=== PATIENT | female | born 1955 | race African-American/Black ===

== ENCOUNTER → 2017-02-20 | Outpatient (CLI) | payer OTHER ==
[2016-11-01 11:00] VITALS: BP 137/82
[~2017-02-20] MED LIST: ASPI-482 PO; ATOR10TA PO; BENZ1TAB5 PO; Benztropine Mesylate PO; CARV3.12 PO; CITA40TA5 PO; DIVA500T17 PO; DIVA500T9 PO; DULO30CA43 PO; FLUO40CA2 PO; FURO40TA4 PO; GABA-586 PO; HYDR-2678 PO; LEVE500T6 PO; LEVO25TA4 PO; LISI-338 PO; LISI10TA2 PO; LORA0.5T PO; METF500T4 PO; MONT10TA9 PO; OLAN15TA9 PO; OLAN5TAB9 PO; OMEP40CA5 PO; PANT40TA5 PO; POTA10CA PO; SENN1TAB19 PO; SOLI5TAB PO; WARF1TAB7 PO; WARF4TAB7 PO
--- NOTE | 2017-02-20 18:43 | EEG ---
DATE OF SERVICE: 02/20/2017 This is EEG number [id number], performed on 02/20/2017. OBJECTIVE: The patient is a 61-year-old female with seizures. DESCRIPTION: This is a digital study. Electrodes are placed according to the International 10-20 system. Bipolar and referential montages are available. Activation procedures typically include hyperventilation and intermittent photic stimulation. INTERPRETATION: The waking background consists of 8-9 Hz, 50-100 microvolt activity, symmetrically distributed over parietooccipital regions and reactive to eye opening. Stage 1 sleep is achieved with normal electroencephalogram patterns. Hyperventilation and intermittent photic stimulation are noncontributory. IMPRESSION: This electroencephalogram with the patient awake and asleep is within normal limits. There is no focal, paroxysmal or epileptiform activity. Thank you for letting us help with the patient's care. ZAKIA MYRICK MD DR: CAR/rima JOB#: [id number] / [id number] SHANTE Nick MD
== END | disposition home or self-care (01) ==
LOC: RT 08:05
PROVIDERS: ATTEND Psychiatry & Neurology Neurology with Special Qualifications in Child Neurology
DX: R56.9 Unspecified convulsions (principal)
CPT/HCPCS: 95816

== ENCOUNTER 2017-03-19 11:35 | Inpatient (IN) | payer OTHER ==
[~2017-03-19] VITALS: Ht 167.6 cm; Wt 156.7 kg
[~2017-03-19 11:35] MED LIST changes: -POTA10CA PO; +POTASSIUM CHLO10 MEQ PO
[2017-03-19] MEDS ORDERED: IPRATRPIUM/ALBUTEROL 0.5/2.5MG 3 ML NEBU. NEB ONE (12:00)
[2017-03-19 12:24] LABS: INR 3.9 (0.8-1.1)
[2017-03-19 12:26] LABS: BASO # 0.1 x10^3/uL (0.0-0.2); BASO % 1 % (0-3); EOS % 2 % (0-3); HEMATOCRIT 34.8 % (36.0-47.0); HEMOGLOBIN 11.6 g/dL (12.0-15.5); LYMPH # 2.5 x10^3/uL (1.0-4.8); LYMPH % 46 % (24-48); MEAN CORPUSCULAR HEMOGLOBIN 28 pg (25-35); MEAN CORPUSCULAR HGB CONC 33 g/dL (31-37); MEAN CORPUSCULAR VOLUME 83 fL (79-100); MONO % 8 % (0-9); NEUT % 44 % (31-73); PLATELET COUNT 246 x10^3/uL (140-400); RED BLOOD COUNT 4.19 x10^6/uL (3.50-5.40); WHITE BLOOD COUNT 5.5 x10^3/uL (4.0-11.0)
[2017-03-19 12:27] LABS: CREATININE 1.2 mg/dL (0.6-1.0); GFR 54.9
[2017-03-19 12:33] LABS: ALBUMIN 3.3 g/dL (3.4-5.0); ALBUMIN/GLOBULIN RATIO 0.9 (1.0-1.7); MAGNESIUM 1.7 mg/dL (1.8-2.4); TOTAL BILIRUBIN 0.2 mg/dL (0.2-1.0); TOTAL PROTEIN 7.1 g/dL (6.4-8.2)
--- NOTE | 2017-03-19 12:53 | RAD ---
Examination: Single frontal view the chest. History: History of shortness of breath, weakness Comparison: 10/30/2016 Findings: Low lung volumes and technique axial due to pulmonary vasculature. Mild cardiomegaly. Right-sided cardiac pacer is unchanged. Minimal prominent appearing bilateral interstitial lung markings likely minimal congestive changes. Impression: 1. Minimal congestive changes
--- NOTE | 2017-03-19 13:14 | PHYS DOC ---
Past Medical History Past Medical History: Asthma, Bipolar, Diabetes-Type II, Hypertension, Hypothyroid, Other Additional Past Medical Histor: PE Past Surgical History: Cholecystectomy, Pacemaker, Other Additional Past Surgical Histo: bladder lift, partial hysterectomy, hernia repair Alcohol Use: None Drug Use: None Adult General Chief Complaint Chief Complaint: SHORTNESS OF BREATH HPI HPI Patient is a 61 year old female presenting to the emergency department for evaluation of shortness of breath that started earlier this morning and has persisted the point that she cannot emulate without becoming severely dyspneic. She appears to be short of breath and hyperventilating and she will answer questions in short word sentences. She says she does not feel anxious. She has history of pulmonary emboli and is on Coumadin. She says she has some chest tightness but denies any fevers chills nausea vomiting or other systemic symptoms. Review of Systems Review of Systems Constitutional: Denies fever or chills [] Eyes: Denies change in visual acuity, redness, or eye pain [] HENT: Denies nasal congestion or sore throat [] Respiratory: Denies cough. + shortness of breath [] Cardiovascular: No additional information not addressed in HPI [] GI: Denies abdominal pain, nausea, vomiting, bloody stools or diarrhea [] : Denies dysuria or hematuria [] Musculoskeletal: Denies back pain or joint pain [] Integument: Denies rash or skin lesions [] Neurologic: Denies headache, focal weakness or sensory changes [] Current Medications Current Medications Current Medications Medications (Trade) Dose Ordered Sig/Neo Start Time Stop Time Status Last Admin Dose Admin Albuterol/ Ipratropium (Duoneb) 3 ml 1X ONCE 03/19/17 12:00 03/19/17 12:01 DC 03/19/17 12:10 3 ML Levofloxacin/ Dextrose 150 ml @ 100 mls/hr 1X ONCE 03/19/17 13:15 03/19/17 14:44 03/19/17 14:17 100 MLS/HR Lorazepam (Ativan) 1 mg 1X ONCE 03/19/17 12:00 03/19/17 12:01 DC 03/19/17 12:16 1 MG Sodium Chloride 1,000 ml @ 1,000 mls/hr 1X ONCE 03/19/17 13:15 03/19/17 14:14 DC Allergies Allergies Allergies Coded Allergies Type Severity Reaction Last Updated Verified No Known Medication Allergies Allergy Unknown 11/26/14 Yes Physical Exam Physical Exam Constitutional: Well developed, well nourished, anxious, non-toxic appearance. [ ] HENT: Normocephalic, atraumatic, bilateral external ears normal, oropharynx moist, no oral exudates, nose normal. [] Eyes: PERRLA, EOMI, conjunctiva normal, no discharge. [] Neck: Normal range of motion, no tenderness, supple, no stridor. [] Cardiovascular:Heart rate regular rhythm, no murmur [] Lungs & Thorax: Bilateral breath sounds diminished with inspiratory and expiratory wheezing Abdomen: Bowel sounds normal, soft, no tenderness, no masses, no pulsatile masses. [] Skin: Warm, dry, no erythema, no rash. [] Back: No tenderness, no CVA tenderness. [] Extremities: No tenderness, no cyanosis, no clubbing, ROM intact, + edema. [] Neurologic: Alert and oriented X 3, normal motor function, normal sensory function, no focal deficits noted. [] Current Patient Data Vital Signs Vital Signs Date Time Temp Pulse Resp B/P (MAP) Pulse Ox O2 Delivery O2 Flow Rate FiO2 03/19/17 12:16 95 Room Air 03/19/17 11:42 97.3 68 24 162/91 (114) 97.3 Lab Values Laboratory Tests Test 03/19/17 12:00 White Blood Count 5.5 x10^3/uL (4.0-11.0) Red Blood Count 4.19 x10^6/uL (3.50-5.40) Hemoglobin 11.6 g/dL (12.0-15.5) L Hematocrit 34.8 % (36.0-47.0) L Mean Corpuscular Volume 83 fL (79-100) Mean Corpuscular Hemoglobin 28 pg (25-35) Mean Corpuscular Hemoglobin Concent 33 g/dL (31-37) Red Cell Distribution Width 17.0 % (11.5-14.5) H Platelet Count 246 x10^3/uL (140-400) Neutrophils (%) (Auto) 44 % (31-73) Lymphocytes (%) (Auto) 46 % (24-48) Monocytes (%) (Auto) 8 % (0-9) Eosinophils (%) (Auto) 2 % (0-3) Basophils (%) (Auto) 1 % (0-3) Neutrophils # (Auto) 2.4 x10^3uL (1.8-7.7) Lymphocytes # (Auto) 2.5 x10^3/uL (1.0-4.8) Monocytes # (Auto) 0.4 x10^3/uL (0.0-1.1) Eosinophils # (Auto) 0.1 x10^3/uL (0.0-0.7) Basophils # (Auto) 0.1 x10^3/uL (0.0-0.2) Prothrombin Time 36.0 SEC (11.7-14.0) H Prothrombin Time INR 3.9 (0.8-1.1) H PTT 77 SEC (24-38) H D-Dimer (Jolynn) 0.27 ug/mlFEU (0.00-0.50) Sodium Level 140 mmol/L (136-145) Potassium Level 4.0 mmol/L (3.5-5.1) Chloride Level 106 mmol/L (98-107) Carbon Dioxide Level 23 mmol/L (21-32) Anion Gap 11 (6-14) Blood Urea Nitrogen 12 mg/dL (7-20) Creatinine 1.2 mg/dL (0.6-1.0) H Estimated GFR (Cockcroft-Gault) 54.9 BUN/Creatinine Ratio 10 (6-20) Glucose Level 93 mg/dL (70-99) Lactic Acid Level 2.9 mmol/L (0.4-2.0) H Calcium Level 9.0 mg/dL (8.5-10.1) Magnesium Level 1.7 mg/dL (1.8-2.4) L Total Bilirubin 0.2 mg/dL (0.2-1.0) Aspartate Amino Transferase (AST) 21 U/L (15-37) Alanine Aminotransferase (ALT) 32 U/L (14-59) Alkaline Phosphatase 58 U/L (46-116) Creatine Kinase 338 U/L (26-192) H Troponin I Quantitative < 0.017 ng/mL (0.000-0.055) KS-Fbo-C-Type Natriuretic Peptide 121 pg/mL (0-124) Total Protein 7.1 g/dL (6.4-8.2) Albumin 3.3 g/dL (3.4-5.0) L Albumin/Globulin Ratio 0.9 (1.0-1.7) L Lipase 88 U/L (73-393) Thyroid Stimulating Hormone (TSH) 1.813 uIU/mL (0.358-3.74) Ethyl Alcohol Level < 10 mg/dL (0-10) Laboratory Tests 03/19/17 12:00 Laboratory Tests 03/19/17 12:00 EKG EKG Normal sinus rhythm at 64 beats per minutes with leftward axis no obvious ST elevation or depression and normal T waves. Radiology/Procedures Radiology/Procedures Examination: Single frontal view the chest. History: History of shortness of breath, weakness Comparison: 10/30/2016 Findings: Low lung volumes and technique axial due to pulmonary vasculature. Mild cardiomegaly. Right-sided cardiac pacer is unchanged. Minimal prominent appearing bilateral interstitial lung markings likely minimal congestive changes. Impression: 1. Minimal congestive changes DICTATED and SIGNED BY: MAIKEL CRISTINA MD DATE: 03/19/17 124 Course & Med Decision Making Course & Med Decision Making Patient given Ativan and DuoNeb and improved significantly however she says that she is still feeling short of breath and poorly. Even patient is morbidly obese she says she cannot function very well at home and is concerned about her safety at home. Patient will be admitted in stable condition. Dragon Disclaimer Dragon Disclaimer This electronic medical record was generated, in whole or in part, using a voice recognition dictation system. Departure Departure Impression: Primary Impression: COPD exacerbation Disposition: ADMITTED INPATIENT Admitting Physician: Terry Gómez Condition: STABLE Referrals: TERRY GÓMEZ MD (PCP) SAVANAH DEMPSEY DO March 19, 2017 13:13
[2017-03-19] MEDS ORDERED: IV NORMAL SALINE 1000ML BAG 1,000 ML IV ONE (13:15)
[2017-03-19] MEDS ORDERED: ONDANSETRON PF 4 MG/2 ML VIAL. IV PRN (14:30)
--- NOTE | 2017-03-19 15:17 | EKG ---
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
[2017-03-19 15:20] VITALS: BP 141/95
--- NOTE | 2017-03-19 15:49 | ACF ---
Admission Forms Criteria COPD Clinical Indications for Admission to Inpatient Care (Place 'X' for any and all applicable criteria): Admission is indicated for ANY ONE of the following (1)(2)(3): [ ]I. Acute exacerbation by high-risk comorbidity (e.g., pneumonia, dysrhythmia, heart failure, pleural effusion, pneumothorax) or severe underlying COPD (e.g., steroid dependent) [X]II. Inpatient admission required rather than observation care (see Chronic Obstructive Pulmonary Disease: Observation Care) because of ANY ONE of the following: [X]a) New or pre-existing signs or symptoms of COPD (eg, dyspnea or Tachypnea at rest or with minimal activity) that persist despite outpatient and observation care treatment [ ]b) New-onset hypoxemia (room air SaO2 less than 90%, PO2 less than 60 mm Hg (8.0 kPa)) that persists despite outpatient and observation care treatment [ ]c) Worsening of pre-existing hypoxemia (eg, new or increased requirement for supplemental oxygen to maintain oxygenation at baseline level) that persists despite outpatient and observation care treatment, with oxygen treatment needs performable only in acute inpatient setting [ ]d) Hypercarbia (PCO2 greater than 40 mm Hg (5.3 kPa))-induced respiratory acidosis (pH less than 7.35) that persists despite outpatient and observation care treatment [ ]e) Supplemental oxygen or respiratory treatments for over 24 hours that are performable only in acute inpatient setting [ ]f) Chest tube placement with active evacuation (e.g., suction, drainage) (5) [ ]g) Other condition, treatment or monitoring requiring inpatient admission [ ]III. Planned invasive surgical or diagnostic procedures requiring acute- care hospitalization [ ]IV. Acute respiratory failure (e.g., uncompensated hypercarbia, severe hypoxemia) [ ]V. Severe comorbid condition (e.g., severe steroid myopathy, acute vertebral fracture) that has acutely worsened pulmonary function [ ]. Confusion state, lethargy, obtundation, stupor or coma Extended stay beyond goal length of stay may be needed for (31)(32): [ ]a ) Respiratory Failure. [ ]b) Severe or persisting hypoxemia or hypercarbia [ ]c) Severe or persistent dyspnea [ ]d) Comorbidities (e.g. chronic heart failure, atrial fibrillation with rapid response, pneumonia) [ ]e) Malnutrition The original [facility] content created by [facility] has been revised. The portions of the content which have been revised are identified through the use of italic text or in bold, and [facility] has neither reviewed nor approved the modified material. All other unmodified content is copyright [email or web address]. Please see references footnoted in the original [email or web address] edition 2016 Admission Criteria Met?: Yes TAMARA PIZARRO March 19, 2017 15:49
[2017-03-19] MEDS ORDERED: LISI-338 PO (17:30)
[2017-03-19] MEDS ORDERED: ZIPR60CA2 PO (17:34)
[2017-03-19] MEDS ORDERED: ERGO500012 PO (17:34)
[2017-03-19] MEDS ORDERED: POLY2500 PO (17:34)
[2017-03-19 19:00] VITALS: BP 142/77
[2017-03-19 23:10] VITALS: BP 139/85
[2017-03-20 03:00] VITALS: BP 141/83
[2017-03-20 06:32] LABS: BASO # 0.1 x10^3/uL (0.0-0.2); BASO % 1 % (0-3); EOS % 3 % (0-3); HEMOGLOBIN 11.7 g/dL (12.0-15.5); LYMPH # 2.8 x10^3/uL (1.0-4.8); LYMPH % 49 % (24-48); MEAN CORPUSCULAR HEMOGLOBIN 27 pg (25-35); MEAN CORPUSCULAR HGB CONC 32 g/dL (31-37); MEAN CORPUSCULAR VOLUME 84 fL (79-100); MONO % 8 % (0-9); NEUT % 39 % (31-73); PLATELET COUNT 279 x10^3/uL (140-400); RED CELL DISTRIBUTION WIDTH 17.3 % (11.5-14.5); WHITE BLOOD COUNT 5.7 x10^3/uL (4.0-11.0)
[2017-03-20 06:41] LABS: CALCIUM 8.6 mg/dL (8.5-10.1); CREATININE 1.1 mg/dL (0.6-1.0); GFR 60.7; POTASSIUM 3.9 mmol/L (3.5-5.1)
[2017-03-20 07:00] VITALS: BP 140/88
[2017-03-20] MEDS ORDERED: IPRATRPIUM/ALBUTEROL 0.5/2.5MG 3 ML NEBU. NEB ONE (09:15)
--- NOTE | 2017-03-20 09:17 | PDOC ---
Provider Note Provider Note dictated Dyspnea,? etiology doubt PE, will do V/Q ZHANG MARSH MD March 20, 2017 09:17
[2017-03-20] MEDS ORDERED: ENOXAPARIN 40 MG/0.4 ML SYRINGE. SQ SCH (10:00)
[2017-03-20] MEDS: LEVOTHYROXINE 25 MCG TABLET. PO SCH (10:01)
[2017-03-20] MEDS: FLUoxetine HCL 20 MG CAPSULE PO SCH (10:01)
[2017-03-20] MEDS: LORazepam 0.5 MG TABLET PO SCH ×3 (10:01→20:54)
[2017-03-20] MEDS: LISINOPRIL 5 MG TABLET. PO SCH (10:01)
[2017-03-20] MEDS: POLYETHYLENE GLYCOL 3350 17 GM PACKET. PO SCH (10:01)
[2017-03-20] MEDS: levETIRAcetam 500 MG TABLET PO SCH ×2 (10:01→20:54)
[2017-03-20] MEDS: ASPIRIN ENTERIC COATED 81 MG TABLET.DR. PO SCH (10:01)
[2017-03-20] MEDS: ZIPRASIDONE 60 MG CAPSULE. PO SCH ×2 (10:01→20:54)
[2017-03-20] MEDS: methylPREDNISolone SOD SUCC PF 125 MG/2 ML VIAL. IV SCH ×3 (10:02→20:54)
--- NOTE | 2017-03-20 10:20 | PDOC ---
Provider Note Provider Note Pt seen.H&P dictated. #[id number] SHANTE BERNAL MD March 20, 2017 10:20
--- NOTE | 2017-03-20 10:24 | CONS ---
DATE OF CONSULTATION: ATTENDING PHYSICIAN: Dr. Gómez. REASON FOR CONSULTATION: Dyspnea. HISTORY OF PRESENT ILLNESS: The patient is a 61-year-old morbidly obese patient with a history of pulmonary embolism about a year ago. She has been on Coumadin since then. She said yesterday she had a sudden episode of shortness of breath. She said she felt a little lightheaded as well. No chest pain. No cough, no fever, no chills. No leg edema. The patient was short of breath and was hyperventilating. She was seen in the Emergency Room for further evaluation. Initial workup revealed a clear chest x-ray. Her INR was actually 3.9 and her D-dimer was only 0.27. She feels better. I have been asked to see her for further evaluation. She never smoked cigarettes. She does have a history of asthma. She said she was not bothered by hot weather. PAST MEDICAL HISTORY: History of asthma, history of bipolar disorder, type 2 diabetes, hypertension, hypothyroidism, history of PE about a year ago, has been on chronic anticoagulation since then. PAST SURGICAL HISTORY: Cholecystectomy, pacemaker, bladder lift and partial hysterectomy and hernia repair. SOCIAL HISTORY: Nonsmoker. No history of alcohol use. ALLERGIES: None. MEDICATIONS: Reviewed as listed in the MRAD including IV steroids, Levaquin and she is also on warfarin. REVIEW OF SYSTEMS: Twelve-point systems were obtained. Pertinent positives discussed in my history of present illness, otherwise noncontributory. All systems that were negative were reviewed as well. FAMILY HISTORY: Noncontributory. PHYSICAL EXAMINATION: VITAL SIGNS: Stable. Pulse ox ____ on room air, afebrile. HEENT: Sclerae nonicteric. NECK: Supple. LUNGS: Clear. CARDIOVASCULAR: Regular ____. ABDOMEN: Soft, obese. EXTREMITIES: With no pitting edema. LABORATORY DATA: Reviewed. INR was 3.9. BUN 11, creatinine 1.1. White cell count 5.7, hemoglobin 11.7 and platelets are 279. IMPRESSION: 1. Acute episode of dyspnea. The patient has a history of pulmonary embolism about a year ago. Her INR was supra-therapeutic and it was 3.9. Her D-dimer was normal. It seems to be unlikely that we are dealing with pulmonary emboli, but I will do a VQ scan. She may have mild exacerbation of asthma, however, her lung sounds are clear at present. 2. No significant history of tobacco use. 3. Clear chest x-ray. 4. History of obstructive sleep apnea with intolerance to CPAP. RECOMMENDATIONS: 1. Hold Coumadin. 2. Discontinue Lovenox while she is already on Coumadin. 3. Obtain VQ scan. 4. Continue bronchodilators. 5. Continue steroids with gradual taper. 6. Discussed with family and further recommendations to follow. 7. Noct ox study ZHANG MARSH MD DR: ANDRES/rima JOB#: [id number] / [id number] KARLO
[2017-03-20 11:00] VITALS: BP 144/85
[2017-03-20] MEDS: IPRATRPIUM/ALBUTEROL 0.5/2.5MG 3 ML NEBU. NEB SCH ×3 (11:18→19:48)
--- NOTE | 2017-03-20 11:36 | HP ---
ADMIT DATE: 03/19/2017 PATIENT LOCATION: [facility] REASON FOR ADMISSION TO THE HOSPITAL: Shortness of breath, COPD, and history of asthma. HISTORY OF PRESENT ILLNESS: The patient is a 61-year-old female, morbidly obese. She has history of asthma, bipolar, diabetes, central obesity, hypertension, and hypothyroidism. She was having shortness of breath, came to the Emergency Room and she has history of pulmonary embolism in the past. She was on Coumadin. PAST SURGICAL HISTORY: She has history of pacemaker, gallbladder surgery and had a partial hysterectomy, hernia repair, and bladder surgery. ALLERGIES: No known allergies. MEDICATIONS AT HOME: The patient is on aspirin 81 mg, vitamin D 50,000 units once a week, fluoxetine 40 mg daily, Keppra for seizures 500 mg twice a day, levothyroxine 25 mcg daily, lisinopril 5 mg, lorazepam 0.5 mg three times a day, Protonix 40 mg daily, MiraLax 17 g daily, Coumadin takes between 9-10 mg daily, and Geodon 60 mg twice a day. PERSONAL HISTORY: Denies history of smoking, alcohol or drug abuse. FAMILY HISTORY: Diabetes and hypertension. REVIEW OF SYSTEMS: Fourteen-system review: CARDIAC: Complains of shortness of breath, no wheezing. GASTROINTESTINAL: No nausea or vomiting. NEUROLOGICAL: No weakness. The patient denies any pain going anywhere. Rest of the fourteen-systems was reviewed and negative. PHYSICAL EXAMINATION: GENERAL: The patient is not in any distress, comfortable lying in bed. VITAL SIGNS: Temperature 97, pulse 68, respirations 24, blood pressure 162/91, 98% on room air. HEENT: Head is atraumatic. Pupils equal. Oral cavity: Dentures. NECK: Supple. Thyroid not enlarged, JVD not elevated. CHEST: Symmetrical. CARDIOVASCULAR: S1, S2. No murmurs. LUNGS: Clear to auscultation. No wheezing. ABDOMEN: Central obesity. No mass palpable. EXTERNAL GENITALIA: No Mcwilliams. RECTAL: Deferred. EXTREMITIES: No calf tenderness, no edema. Pulses 1+. NEUROLOGIC: Cranial nerves intact. Power 5/5 in all extremities. LABORATORY DATA: Shows a white count of 5, hemoglobin 11, and platelets 246. Electrolytes show sodium 140, potassium 4.0, chloride 106, bicarbonate 23, BUN 12, creatinine 1.2, and glucose 93. Magnesium 1.7. LFTs were normal. Troponin 0.017. INR was 4. Alcohol level was less than 10. DIAGNOSTIC DATA: Chest x-ray shows mild scarring, prominent pulmonary vasculature and EKG done, report is pending. FINAL IMPRESSION: 1. Shortness of breath. 2. Possible obesity syndrome and hypoventilation syndrome. 3. History of pulmonary embolism, on anticoagulation, therapeutic INR. 4. Hypertension, hyperlipidemia, and hypothyroidism. 5. History of bipolar. 6. History of seizures. PLAN: At this time, was admitted to the hospital, seen by Pulmonology and will do a 6-minute walk and sleep desaturation study .In the past, the patient has not tolerated CPAP mask and will monitor and see how the patient's condition improves. SHANTE BERNAL MD DR: ZAKIYA/rima JOB#: [id number] / [id number] KARLO
--- NOTE | 2017-03-20 11:43 | EKG ---
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
[2017-03-20] MEDS: PANTOPRAZOLE 40 MG TABLET.DR. PO SCH (11:49)
--- NOTE | 2017-03-20 14:23 | RAD ---
Examination: VQ scan History: History of pulmonary embolus, shortness of breath Comparison: None available Technique: Ventilation scan was performed after administration of 11 mCi of xenon-133 inhalation. Perfusion scan is performed after administration of 5.5 mCi of technetium 99m MAA. Findings: No evidence of segmental mismatches are identified. There is radiotracer uptake identified in the washout phase on the ventilation images likely due to airway disease. Impression: 1. Very low probability for pulmonary embolism. 2. Radiotracer uptake identified in the washout phase images of the ventilation images likely due to airway disease.
[2017-03-20 15:00] VITALS: BP 121/67
[2017-03-20 19:00] VITALS: BP 150/71
[2017-03-20] MEDS ORDERED: WARFARIN 4 MG TABLET. PO SCH (21:00)
[2017-03-20] MEDS ORDERED: WARFARIN 1 MG TABLET. PO SCH (21:00)
[2017-03-20 22:41] VITALS: BP 155/77
[2017-03-21] MEDS: LEVOTHYROXINE 25 MCG TABLET. PO SCH (05:17)
[2017-03-21] MEDS: methylPREDNISolone SOD SUCC PF 125 MG/2 ML VIAL. IV SCH ×2 (05:17→14:29)
[2017-03-21] MEDS: PANTOPRAZOLE 40 MG TABLET.DR. PO SCH (05:17)
[2017-03-21 05:45] LABS: INR 2.9 (0.8-1.1); PROTHROMBIN TIME PATIENT 28.4 SEC (11.7-14.0)
[2017-03-21 07:49] VITALS: BP 153/90
[2017-03-21] MEDS: IPRATRPIUM/ALBUTEROL 0.5/2.5MG 3 ML NEBU. NEB SCH ×3 (07:50→15:44)
[2017-03-21] MEDS: ZIPRASIDONE 60 MG CAPSULE. PO SCH (08:52)
[2017-03-21] MEDS: FLUoxetine HCL 20 MG CAPSULE PO SCH (08:52)
[2017-03-21] MEDS: LORazepam 0.5 MG TABLET PO SCH ×2 (08:52→14:29)
[2017-03-21] MEDS: levETIRAcetam 500 MG TABLET PO SCH (08:52)
[2017-03-21] MEDS: ASPIRIN ENTERIC COATED 81 MG TABLET.DR. PO SCH (08:52)
[2017-03-21] MEDS: LISINOPRIL 5 MG TABLET. PO SCH (08:53)
[2017-03-21] MEDS: POLYETHYLENE GLYCOL 3350 17 GM PACKET. PO SCH (08:53)
--- NOTE | 2017-03-21 10:07 | PDOC ---
PULMONARY PROGRESS NOTES Subjective no soa Vitals Vital Signs Date Time Temp Pulse Resp B/P (MAP) Pulse Ox O2 Delivery O2 Flow Rate FiO2 03/21/17 08:53 65 153/90 03/21/17 08:00 Room Air 03/21/17 07:50 97 03/21/17 07:49 97.9 18 97.9 General: Alert Lungs: Clear Cardiovascular: S1 Abdomen: Soft Neuro Exam: Alert Extremities: No Edema Skin: Warm Labs Laboratory Tests Test 03/19/17 12:00 03/19/17 16:08 03/20/17 05:25 03/20/17 07:32 White Blood Count 5.5 x10^3/uL (4.0-11.0) 5.7 x10^3/uL (4.0-11.0) Red Blood Count 4.19 x10^6/uL (3.50-5.40) 4.30 x10^6/uL (3.50-5.40) Hemoglobin 11.6 g/dL (12.0-15.5) 11.7 g/dL (12.0-15.5) Hematocrit 34.8 % (36.0-47.0) 36.0 % (36.0-47.0) Mean Corpuscular Volume 83 fL (79-100) 84 fL (79-100) Mean Corpuscular Hemoglobin 28 pg (25-35) 27 pg (25-35) Mean Corpuscular Hemoglobin Concent 33 g/dL (31-37) 32 g/dL (31-37) Red Cell Distribution Width 17.0 % (11.5-14.5) 17.3 % (11.5-14.5) Platelet Count 246 x10^3/uL (140-400) 279 x10^3/uL (140-400) Neutrophils (%) (Auto) 44 % (31-73) 39 % (31-73) Lymphocytes (%) (Auto) 46 % (24-48) 49 % (24-48) Monocytes (%) (Auto) 8 % (0-9) 8 % (0-9) Eosinophils (%) (Auto) 2 % (0-3) 3 % (0-3) Basophils (%) (Auto) 1 % (0-3) 1 % (0-3) Neutrophils # (Auto) 2.4 x10^3uL (1.8-7.7) 2.2 x10^3uL (1.8-7.7) Lymphocytes # (Auto) 2.5 x10^3/uL (1.0-4.8) 2.8 x10^3/uL (1.0-4.8) Monocytes # (Auto) 0.4 x10^3/uL (0.0-1.1) 0.4 x10^3/uL (0.0-1.1) Eosinophils # (Auto) 0.1 x10^3/uL (0.0-0.7) 0.2 x10^3/uL (0.0-0.7) Basophils # (Auto) 0.1 x10^3/uL (0.0-0.2) 0.1 x10^3/uL (0.0-0.2) Prothrombin Time 36.0 SEC (11.7-14.0) Prothromb Time International Ratio 3.9 (0.8-1.1) Activated Partial Thromboplast Time 77 SEC (24-38) D-Dimer (Jolynn) 0.27 ug/mlFEU (0.00-0.50) Sodium Level 140 mmol/L (136-145) 138 mmol/L (136-145) Potassium Level 4.0 mmol/L (3.5-5.1) 3.9 mmol/L (3.5-5.1) Chloride Level 106 mmol/L (98-107) 104 mmol/L (98-107) Carbon Dioxide Level 23 mmol/L (21-32) 25 mmol/L (21-32) Anion Gap 11 (6-14) 9 (6-14) Blood Urea Nitrogen 12 mg/dL (7-20) 11 mg/dL (7-20) Creatinine 1.2 mg/dL (0.6-1.0) 1.1 mg/dL (0.6-1.0) Estimated GFR (Cockcroft-Gault) 54.9 60.7 BUN/Creatinine Ratio 10 (6-20) Glucose Level 93 mg/dL (70-99) 90 mg/dL (70-99) Lactic Acid Level 2.9 mmol/L (0.4-2.0) 0.9 mmol/L (0.4-2.0) Calcium Level 9.0 mg/dL (8.5-10.1) 8.6 mg/dL (8.5-10.1) Magnesium Level 1.7 mg/dL (1.8-2.4) Total Bilirubin 0.2 mg/dL (0.2-1.0) Aspartate Amino Transf (AST/SGOT) 21 U/L (15-37) Alanine Aminotransferase (ALT/SGPT) 32 U/L (14-59) Alkaline Phosphatase 58 U/L (46-116) Creatine Kinase 338 U/L (26-192) Troponin I Quantitative < 0.017 ng/mL (0.000-0.055) LK-Cbj-I-Type Natriuretic Peptide 121 pg/mL (0-124) Total Protein 7.1 g/dL (6.4-8.2) Albumin 3.3 g/dL (3.4-5.0) Albumin/Globulin Ratio 0.9 (1.0-1.7) Lipase 88 U/L (73-393) Thyroid Stimulating Hormone (TSH) 1.813 uIU/mL (0.358-3.74) Ethyl Alcohol Level < 10 mg/dL (0-10) Glucose (Fingerstick) 87 mg/dL (70-99) Test 03/20/17 11:04 03/20/17 16:19 03/20/17 20:59 03/21/17 04:35 Glucose (Fingerstick) 124 mg/dL (70-99) 159 mg/dL (70-99) 175 mg/dL (70-99) Prothrombin Time 28.4 SEC (11.7-14.0) Prothromb Time International Ratio 2.9 (0.8-1.1) Test 03/21/17 07:53 Glucose (Fingerstick) 130 mg/dL (70-99) Laboratory Tests Test 03/20/17 11:04 03/20/17 16:19 03/20/17 20:59 03/21/17 04:35 Glucose (Fingerstick) 124 mg/dL (70-99) 159 mg/dL (70-99) 175 mg/dL (70-99) Prothrombin Time 28.4 SEC (11.7-14.0) Prothromb Time International Ratio 2.9 (0.8-1.1) Test 03/21/17 07:53 Glucose (Fingerstick) 130 mg/dL (70-99) Medications Active Scripts Medications Dose Route/Sig Max Daily Dose Days Date Category Polyethylene Glycol 3350 2,500 Gm Powder 17 Gm PO DAILY 03/19/17 Reported Geodon (Ziprasidone Hcl) 60 Mg Capsule 60 Mg PO BID 03/19/17 Reported Vitamin D2 (Ergocalciferol (Vitamin D2)) 50,000 Unit Capsule 50,000 Unit PO 2X/WEEK 03/19/17 Reported Lisinopril 5 Mg Tablet 5 Mg PO DAILY 03/19/17 Reported Warfarin Sodium 4 Mg Tablet 2 Tab PO HS 10/30/16 Reported Warfarin Sodium 1 Mg Tablet 1 Mg PO HS 10/30/16 Reported Levetiracetam 500 Mg Tablet 1 Tab PO BID 10/30/16 Reported Lorazepam 0.5 Mg Tablet 1 Tab PO TID 10/30/16 Reported Pantoprazole Sodium 40 Mg Tablet.dr 40 Mg PO DAILY 10/30/16 Reported Fluoxetine Hcl 40 Mg Capsule 1 Cap PO [id number] 10/30/16 Reported Aspir 81 (Aspirin) 81 Mg Tablet.dr 81 Mg PO DAILY08 02/03/14 Reported Levothyroxine Sodium 25 Mcg Tablet 25 Mcg PO DAILY07 02/03/14 Reported Impression . 1. Acute episode of dyspnea. The patient has a history of pulmonary embolism about a year ago. Her INR was supra-therapeutic and it was 3.9. Her D-dimer was normal. Normal VQ scan. She may have mild exacerbation of asthma, 2. No significant history of tobacco use. 3. Clear chest x-ray. 4. History of obstructive sleep apnea with intolerance to CPAP. Plan . 1. Home Coumadin. 2. Noct ox study with no sig desaturation 3. normal VQ scan. 4. Continue bronchodilators. 5. Continue steroids with gradual taper. 6. Discussed with family and Dr enriquez. ok with dc. consider SS as ZHANG AGUAYO MD March 21, 2017 10:07
--- NOTE | 2017-03-21 10:08 | PDOC ---
PROGRESS NOTES Subjective Subjective feels better,no wheezing Objective Objective Vital Signs Date Time Temp Pulse Resp B/P (MAP) Pulse Ox O2 Delivery O2 Flow Rate FiO2 03/21/17 08:53 65 153/90 03/21/17 08:00 Room Air 03/21/17 07:50 97 03/21/17 07:49 97.9 18 97.9 Intake and Output 03/21/17 07:00 Intake Total 900 ml Balance 900 ml Intake Oral 800 ml IV Total 100 ml # Voids 4 # Bowel Movements 1 Physical Exam Abdomen: Normal bowel sounds, Soft Heart: Regular rate, Normal S1, Normal S2 Extremities: No clubbing General: Alert, Oriented X3 HEENT: Atraumatic Lungs: Clear to auscultation MUSCULOSKELETAL: No swelling, Other Neck: Supple Neuro: Normal speech Psych/Mental Status: Mental status NL Skin: No breakdown Assessment Assessment FINAL IMPRESSION: 1. Shortness of breath due to ac bronchitis. 2. Possible obesity and hypoventilation syndrome. 3. History of pulmonary embolism, on anticoagulation, therapeutic INR. 4. Hypertension, hyperlipidemia, and hypothyroidism. 5. History of bipolar. 6. History of seizures. PLAN: V/Q scan neg for PE. inr 2.9. nocturnal oxygen study -neg . 6 mts walk today. labs good. d/c home later today. po prednisone+levaquin. At this time, was admitted to the hospital, seen by Pulmonology and will do a 6-minute walk and sleep study and ____ in the past, the patient has not tolerated CPAP mask and will monitor and see how the patient's condition improves. Problems: Comment Review of Relevant I have reviewed the following items adelaida (where applicable) has been applied. Labs Laboratory Tests Test 03/20/17 11:04 03/20/17 16:19 03/20/17 20:59 03/21/17 04:35 Glucose (Fingerstick) 124 mg/dL (70-99) 159 mg/dL (70-99) 175 mg/dL (70-99) Prothrombin Time 28.4 SEC (11.7-14.0) Prothromb Time International Ratio 2.9 (0.8-1.1) Test 03/21/17 07:53 Glucose (Fingerstick) 130 mg/dL (70-99) Medications Current Medications Albuterol/ Ipratropium (Duoneb) 3 ml RTQID NEB Last administered on 03/21/17 07:50; Start 03/20/17 at 12:00 Ergocalciferol (Vitamin D2) 50,000 unit WEEKLY PO ; Start 03/22/17 at 09:00 Levothyroxine Sodium (Synthroid) 25 mcg DAILY07 PO Last administered on 05:17; Start 03/20/17 at 10:30 Pantoprazole Sodium (Protonix) 40 mg DAILYAC PO Last administered on 03/21/17 05:17; Start 03/20/17 at 11:30 Warfarin Sodium (Coumadin) 1 mg HS PO ; Start 03/20/17 at 21:00; Status UNV Warfarin Sodium (Coumadin) 6 mg DAILY16 PO ; Start 03/21/17 at 16:00 Warfarin Sodium (Coumadin) 8 mg HS PO ; Start 03/20/17 at 21:00; Status UNV Vitals/I & O Vital Sign - Last 24 Hours 03/20/17 03/20/17 03/20/17 03/20/17 11:00 11:21 15:00 15:22 Temp 97.6 98.2 97.6 98.2 Pulse 63 66 Resp 18 18 B/P (MAP) 144/85 (104) 121/67 (85) Pulse Ox 98 98 94 O2 Delivery Room Air Room Air Room Air Room Air 03/20/17 03/20/17 03/20/17 03/20/17 19:00 19:48 20:03 22:41 Temp 97.7 97.9 97.7 97.9 Pulse 68 69 Resp 16 16 B/P (MAP) 150/71 (97) 155/77 (103) Pulse Ox 95 95 94 O2 Delivery Room Air Room Air Room Air Room Air 03/21/17 03/21/17 03/21/17 03/21/17 03:00 07:49 07:50 08:00 Temp 97.9 97.9 Pulse 65 Resp 18 B/P (MAP) 153/90 (111) Pulse Ox 97 97 O2 Delivery Room Air Room Air Room Air Room Air 03/21/17 08:53 Pulse 65 B/P (MAP) 153/90 Intake and Output 03/20/17 03/20/17 03/21/17 15:00 23:00 07:00 Intake Total 100 ml 600 ml 200 ml Balance 100 ml 600 ml 200 ml SHANTE BERNAL MD March 21, 2017 10:08
[2017-03-21] MEDS ORDERED: LEVO500T38 PO (10:12)
[2017-03-21] MEDS ORDERED: PRED50TA PO (10:12)
[2017-03-21 10:52] VITALS: BP 137/69
--- NOTE | 2017-03-21 12:11 | RAD ---
Chest, 2 views, 03/21/2017: History: Shortness of breath Comparison is made to a study from 03/19/2017. A right-sided transvenous pacemaker is in place with 2 leads extending into the right heart. The heart is at the upper limits of normal in size. There is tortuosity of the thoracic aorta. The pulmonary vascularity is normal. No pulmonary infiltrates are seen. There is no evidence of pleural fluid. Moderate hypertrophic spurring is present in the spine. IMPRESSION: 1. Borderline cardiomegaly with aortic ectasia. 2. No acute cardiopulmonary abnormality is detected.
[2017-03-21 14:50] VITALS: BP 122/63
[2017-03-21] MEDS ORDERED: WARFARIN 3 MG TABLET. PO SCH (16:00)
--- NOTE | 2017-03-22 01:44 | RESP ---
DATE OF SERVICE: 03/20/2017 NOCTURNAL OXIMETRY STUDY ATTENDING PHYSICIAN: Dr. Gómez The patient's mean oxygen saturation remained around 93% with the lowest of 80%. Only 1.8% of the time oxygen saturation remained less than 90%. IMPRESSION: No clinically significant nocturnal hypoxia. RECOMMENDATIONS: If clinical suspicion for sleep apnea is high, consider doing full polysomnogram. ZHANG MARSH MD DR: ANDRES/rima JOB#: [id number] / [id number] SHANTE Nick MD
[2017-03-22] MEDS ORDERED: ERGOCALCIFEROL (VITAMIN D2) 50,000 UNIT CAPSULE. PO SCH (09:00)
--- NOTE | 2017-03-22 13:34 | PDOC ---
Provider Note Provider Note Discharge summary dictated. #[id number] SHANTE BERNAL MD March 22, 2017 13:34
--- NOTE | 2017-03-22 22:23 | DS ---
DATE OF DISCHARGE: 03/21/2017 REASON FOR ADMISSION TO THE HOSPITAL: Shortness of breath, cough and wheezing, and COPD with exacerbation. CONSULTATIONS: Dr. Delcid. PROCEDURES DONE: V/Q scan. COMPLICATIONS NOTED: None. HOSPITAL COURSE: The patient is a 61-year-old female,h/o hypertension, obesity, bipolar, and schizophrenia. She has history of DVT, pulmonary embolism, on Coumadin and she came with shortness of breath with wheezing, was seen by Pulmonology, was given IV Solu-Medrol and Rocephin. The patient had a V/Q scan, negative for PE. White count was normal, hemoglobin 11.6, platelets 246. Lactic acid 2.9, came down to 0.9. LFTs were normal. Thyroid was normal. INR was 3.9, came down to 2.9. She is on Coumadin, had a VQ scan that was negative. Repeat chest x-ray, no acute abnormality. FINAL IMPRESSION: 1. Chronic obstructive pulmonary disease with acute bronchitis. 2. History of deep venous thrombosis, pulmonary embolism, on Coumadin, INR was therapeutic. No evidence of new pulmonary embolism. 3. Morbid obesity. 4. Hypertension. 5. Hyperlipidemia. 6. History of bipolar, schizophrenia. DISPOSITION: Home. She had a 6-minute walk as well as nocturnal desaturation study, which was negative. See MRAD from d/c meds SHANTE BERNAL MD DR: ZAKIYA/rima JOB#: [id number] / [id number] KARLO
== END 2017-03-21 16:00 | disposition home or self-care (01) | DRG 191 ==
LOC: ER 11:35 → 5 NORTH 13:42
PROVIDERS: ADMIT Internal Medicine; ATTEND Internal Medicine
DX: J44.0 Chronic obstructive pulmonary disease with (acute) lower respiratory infection (principal); Z68.43 Body mass index [BMI] 50.0-59.9, adult; J20.9 Acute bronchitis, unspecified; J44.1 Chronic obstructive pulmonary disease with (acute) exacerbation; E03.9 Hypothyroidism, unspecified; E11.9 Type 2 diabetes mellitus without complications; E78.5 Hyperlipidemia, unspecified; F31.9 Bipolar disorder, unspecified; I10 Essential (primary) hypertension; J45.909 Unspecified asthma, uncomplicated; Z79.01 Long term (current) use of anticoagulants; Z82.49 Family history of ischemic heart disease and other diseases of the circulatory system; Z83.3 Family history of diabetes mellitus; Z86.711 Personal history of pulmonary embolism; Z95.0 Presence of cardiac pacemaker; E66.01 Morbid (severe) obesity due to excess calories
CPT/HCPCS: 36415; 71010; 71020; 78582; 80048; 80053; 82550; 82947; 83605; 83690; 83735; 83880; 84443; 84484; 85027; 85379; 85610; 85730; 93005; 94250; 94620; 94640; 94760; 94799; 96361; 96374; 96375; A9540; A9558; G0480; J1956; J2060; J2930; J7030; J7620; 97110; 99285-25

== ENCOUNTER → 2017-06-11 | Outpatient (CLI) | payer OTHER ==
[~2017-06-11] MED LIST changes: +ERGO500027 PO; +LEVO500T59 PO; +POLY2500 PO; +PRED50TA PO; -SOLI5TAB PO; +SOLI5TAB2 PO; +ZIPR60CA2 PO
--- NOTE | 2017-06-12 18:54 | SLEEP ---
DATE OF STUDY: 06/11/2017 ATTENDING PHYSICIAN: Dr. Gómez. The patient is a 62-year-old, who weighs 330 pounds with a BMI of 53. The patient's Vestal score was 14. Sleep study was performed at [facility]. This was a diagnostic study. During the night study, the patient spent 441 minutes in bed and slept for 381 minutes with a sleep efficiency of 86%. Sleep latency was 13 minutes with a REM latency of 346 minutes. Overall, sleep architecture showed increased stage I sleep, normal stage II sleep, normal slow wave and normal REM sleep. During the night study, the patient had 23 obstructive apneas, 28 hypopneas, 3 mixed and no central apneas. The patient's apnea-hypopnea index was 9 per hour with a supine index of 9 per hour and REM index of 41 per hour. Review of nocturnal oximetry study revealed a mean oxygen saturation of 94% with the lowest of 81%. 4% of time oxygen saturation remained between 80% and 89%. EKG monitoring revealed no sustained arrhythmias. PLMs were not seen. IMPRESSION: 1. Mild sleep apnea-hypopnea syndrome with worsening during REM sleep. 2. Nocturnal hypoxia secondary to obstructive sleep apnea. 3. No clinically significant PLMS. RECOMMENDATIONS: 1. The patient is clinically symptomatic with an Vestal score of 14. The patient's sleep apnea was worse in REM sleep. I would recommend treatment of the patient's sleep apnea with either oral appliance or a trial of CPAP titration. 2. If the patient undergoes CPAP titration, then follow up in 4-6 weeks to assess compliance with CPAP and to document clinical improvement. 3. Weight loss is strongly advised. 4. 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 5. Caution regarding driving until symptoms of sleep apnea have resolved with above recommendation. ZHAGN MARSH MD DR: ANDRES/rima JOB#: [id number] / [id number] SHANTE Nick MD
== END | disposition home or self-care (01) ==
LOC: SLPLAB 18:33
PROVIDERS: ATTEND Internal Medicine
DX: G47.33 Obstructive sleep apnea (adult) (pediatric) (principal)
CPT/HCPCS: 95810

== ENCOUNTER 2018-07-02 13:55 | Inpatient (IN) | payer MEDICARE ==
[~2018-07-02] VITALS: Ht 165.1 cm; Wt 152.9 kg
[~2018-07-02 13:55] MED LIST changes: +ACET325T9 PO; +DIVA-53 PO; -DIVA500T9 PO; +FURO20TA3 PO; +METF500T16 PO; -METF500T4 PO; +POTA10TA12 PO; -POTASSIUM CHLO10 MEQ PO; +WARF1TAB69 PO; -WARF1TAB7 PO; +WARF4TAB64 PO; -WARF4TAB7 PO
--- NOTE | 2018-07-02 14:42 | RAD ---
Examination: Single frontal view of the chest HISTORY: History of weakness, fatigue, shortness of breath COMPARISON: 04/20/2018 FINDINGS: Low lung volumes and technique accentuates heart size and pulmonary vascularity. Right-sided pacer is unchanged. Mild prominent appearing bilateral interstitial lung markings likely mild congestive changes. IMPRESSION: 1. Mild prominent appearing interstitial lung markings likely mild congestive changes. Electronically signed by: Nathaniel Hernandez MD (07/02/2018 2:39 PM) [id number]
[2018-07-02 15:08] LABS: BASO % 1 % (0-3); EOS # 0.2 x10^3/uL (0.0-0.7); EOS % 3 % (0-3); HEMOGLOBIN 11.5 g/dL (12.0-15.5); LYMPH # 2.3 x10^3/uL (1.0-4.8); LYMPH % 39 % (24-48); MEAN CORPUSCULAR HEMOGLOBIN 28 pg (25-35); MEAN CORPUSCULAR HGB CONC 33 g/dL (31-37); MEAN CORPUSCULAR VOLUME 85 fL (79-100); MONO # 0.3 x10^3/uL (0.0-1.1); MONO % 5 % (0-9); NEUT # 3.1 x10^3uL (1.8-7.7); NEUT % 53 % (31-73); PLATELET COUNT 261 x10^3/uL (140-400); RED CELL DISTRIBUTION WIDTH 14.7 % (11.5-14.5); WHITE BLOOD COUNT 5.8 x10^3/uL (4.0-11.0)
[2018-07-02 15:18] LABS: PROTHROMBIN TIME PATIENT 24.6 SEC (11.7-14.0)
[2018-07-02 15:22] LABS: D-DIMER 0.3 ug/mlFEU (0.00-0.50)
[2018-07-02 15:29] LABS: CALCIUM 8.6 mg/dL (8.5-10.1); CREATININE 1.4 mg/dL (0.6-1.0); GFR 45.7; POTASSIUM 3.3 mmol/L (3.5-5.1)
[2018-07-02 15:35] LABS: ALBUMIN 3.2 g/dL (3.4-5.0); ALBUMIN/GLOBULIN RATIO 0.8 (1.0-1.7); TOTAL BILIRUBIN 0.4 mg/dL (0.2-1.0); TOTAL PROTEIN 7.3 g/dL (6.4-8.2)
--- NOTE | 2018-07-02 17:30 | PHYS DOC ---
Past Medical History Past Medical History: Asthma, Bipolar, Diabetes-Type II, Hypertension, Hypothyroid, Schizophrenia, Other Additional Past Medical Histor: PE Past Surgical History: Cholecystectomy, Pacemaker, Other Additional Past Surgical Histo: bladder lift, partial hysterectomy, hernia repair Alcohol Use: None Drug Use: None Adult General Chief Complaint Chief Complaint: FATIGUE HPI HPI Patient is a 63 year old female who presents with weakness and fatigue. The patient states that she has been having increased weakness over the past 2 days. She was hospitalized a month ago with a pulmonary embolism. The patient is on Coumadin currently. She states she takes her medications as directed. The patient is extremely anxious upon first. In the room. She has her key account manager from the [facility] in the room with her. She denies chest pain, abdominal pain or diaphoresis. Review of Systems Review of Systems Constitutional: Denies fever or chills [] Eyes: Denies change in visual acuity, redness, or eye pain [] HENT: Denies nasal congestion or sore throat [] Respiratory: See history of present illness Cardiovascular: No additional information not addressed in HPI [] GI: Denies abdominal pain, nausea, vomiting, bloody stools or diarrhea [] : Denies dysuria or hematuria [] Musculoskeletal: Denies back pain or joint pain [] Integument: Denies rash or skin lesions [] Neurologic: Denies headache, focal weakness or sensory changes [] Endocrine: Denies polyuria or polydipsia [] All other systems were reviewed and found to be within normal limits, except as documented in this note. Allergies Allergies Allergies Coded Allergies Type Severity Reaction Last Updated Verified No Known Medication Allergies Allergy Unknown 11/26/14 Yes Physical Exam Physical Exam Constitutional: Well developed, well nourished, no acute distress, non-toxic appearance. [] HENT: Normocephalic, atraumatic, bilateral external ears normal, oropharynx moist, no oral exudates, nose normal. [] Eyes: PERRLA, EOMI, conjunctiva normal, no discharge. [] Neck: Normal range of motion, no tenderness, supple, no stridor. [] Cardiovascular:Heart rate regular rhythm, no murmur [] Lungs & Thorax: Bilateral breath sounds clear to auscultation [] Abdomen: Bowel sounds normal, soft, no tenderness, no masses, no pulsatile masses. [] Skin: Warm, dry, no erythema, no rash. [] Back: No tenderness, no CVA tenderness. [] Extremities: No tenderness, no cyanosis, no clubbing, ROM intact, no edema. [] Neurologic: Alert and oriented X 3, normal motor function, normal sensory function, no focal deficits noted. [] Psychologic: Anxious and tearful Current Patient Data Vital Signs Vital Signs Date Time Temp Pulse Resp B/P (MAP) Pulse Ox O2 Delivery O2 Flow Rate FiO2 07/02/18 17:05 65 14 125/65 (85) 97 Room Air 07/02/18 14:13 98.3 98.3 Lab Values Laboratory Tests Test 07/02/18 14:50 White Blood Count 5.8 x10^3/uL (4.0-11.0) Red Blood Count 4.10 x10^6/uL (3.50-5.40) Hemoglobin 11.5 g/dL (12.0-15.5) L Hematocrit 35.0 % (36.0-47.0) L Mean Corpuscular Volume 85 fL (79-100) Mean Corpuscular Hemoglobin 28 pg (25-35) Mean Corpuscular Hemoglobin Concent 33 g/dL (31-37) Red Cell Distribution Width 14.7 % (11.5-14.5) H Platelet Count 261 x10^3/uL (140-400) Neutrophils (%) (Auto) 53 % (31-73) Lymphocytes (%) (Auto) 39 % (24-48) Monocytes (%) (Auto) 5 % (0-9) Eosinophils (%) (Auto) 3 % (0-3) Basophils (%) (Auto) 1 % (0-3) Neutrophils # (Auto) 3.1 x10^3uL (1.8-7.7) Lymphocytes # (Auto) 2.3 x10^3/uL (1.0-4.8) Monocytes # (Auto) 0.3 x10^3/uL (0.0-1.1) Eosinophils # (Auto) 0.2 x10^3/uL (0.0-0.7) Basophils # (Auto) 0.0 x10^3/uL (0.0-0.2) Prothrombin Time 24.6 SEC (11.7-14.0) H Prothrombin Time INR 2.3 (0.8-1.1) H PTT 42 SEC (24-38) H D-Dimer (Jolynn) 0.30 ug/mlFEU (0.00-0.50) Sodium Level 137 mmol/L (136-145) Potassium Level 3.3 mmol/L (3.5-5.1) L Chloride Level 103 mmol/L (98-107) Carbon Dioxide Level 25 mmol/L (21-32) Anion Gap 9 (6-14) Blood Urea Nitrogen 15 mg/dL (7-20) Creatinine 1.4 mg/dL (0.6-1.0) H Estimated GFR (Cockcroft-Gault) 45.7 BUN/Creatinine Ratio 11 (6-20) Glucose Level 104 mg/dL (70-99) H Calcium Level 8.6 mg/dL (8.5-10.1) Total Bilirubin 0.4 mg/dL (0.2-1.0) Aspartate Amino Transferase (AST) 16 U/L (15-37) Alanine Aminotransferase (ALT) 26 U/L (14-59) Alkaline Phosphatase 78 U/L (46-116) Creatine Kinase 269 U/L (26-192) H Creatine Kinase MB (Mass) 0.9 ng/mL (0.0-3.6) Creatine Kinase MB Relative Index 0.3 % (0-4) Troponin I Quantitative < 0.017 ng/mL (0.000-0.055) Total Protein 7.3 g/dL (6.4-8.2) Albumin 3.2 g/dL (3.4-5.0) L Albumin/Globulin Ratio 0.8 (1.0-1.7) L Laboratory Tests 07/02/18 14:50 Laboratory Tests 07/02/18 14:50 EKG EKG [] Radiology/Procedures Radiology/Procedures [] Course & Med Decision Making Course & Med Decision Making Pertinent Labs and Imaging studies reviewed. (See chart for details) []Patient was trialed with walking and was unable to return back to bed without assistance from the restroom. She has been admitted to the hospital for further evaluation and management per Dr. Gómez, her primary care provider. She is in agreement with this plan. Dragon Disclaimer Dragon Disclaimer This electronic medical record was generated, in whole or in part, using a voice recognition dictation system. Departure Departure Impression: Primary Impression: Weakness Disposition: ADMITTED INPATIENT Admitting Physician: Shante Gómez Condition: IMPROVED Referrals: SHANTE GÓMEZ MD (PCP) BRENDA ESCUDERO SENIOR MATERIALS SCIENTIST Jul 02, 2018 17:30
[2018-07-02] MEDS ORDERED: ONDANSETRON PF 4 MG/2 ML VIAL. IV PRN (17:45)
[2018-07-02 19:00] VITALS: BP 140/80
[2018-07-02] MEDS: IV NORMAL SALINE 1000ML BAG 1,000 ML IV SCH (21:27)
[2018-07-02 22:51] VITALS: BP 126/82
[2018-07-03 02:52] VITALS: BP 140/73
[2018-07-03] MEDS: IV NORMAL SALINE 1000ML BAG 1,000 ML IV SCH ×2 (05:24→13:10)
--- NOTE | 2018-07-03 06:22 | EKG ---
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
[2018-07-03 07:00] VITALS: BP 123/63
--- NOTE | 2018-07-03 08:41 | PDOC ---
Provider Note Provider Note H&P dictated.#[id number]. SHANTE BERNAL MD Jul 03, 2018 08:41
[2018-07-03] MEDS ORDERED: DEXTROSE 50% 25 GM / 50ML DISP.SYRIN. IV PRN (08:45)
[2018-07-03] MEDS ORDERED: ACETAMINOPHEN 325 MG TABLET. PO PRN (08:45)
[2018-07-03 09:00] LABS: BASO % 1 % (0-3); EOS # 0.3 x10^3/uL (0.0-0.7); EOS % 5 % (0-3); HEMATOCRIT 33.3 % (36.0-47.0); HEMOGLOBIN 11.1 g/dL (12.0-15.5); LYMPH # 2.4 x10^3/uL (1.0-4.8); LYMPH % 48 % (24-48); MEAN CORPUSCULAR HEMOGLOBIN 29 pg (25-35); MEAN CORPUSCULAR HGB CONC 33 g/dL (31-37); MEAN CORPUSCULAR VOLUME 86 fL (79-100); MONO # 0.3 x10^3/uL (0.0-1.1); MONO % 6 % (0-9); NEUT # 2.1 x10^3uL (1.8-7.7); NEUT % 41 % (31-73); PLATELET COUNT 228 x10^3/uL (140-400); RED BLOOD COUNT 3.85 x10^6/uL (3.50-5.40); RED CELL DISTRIBUTION WIDTH 14.6 % (11.5-14.5); WHITE BLOOD COUNT 5.1 x10^3/uL (4.0-11.0)
[2018-07-03] MEDS: levETIRAcetam 500 MG TABLET PO SCH ×2 (09:00→09:07)
[2018-07-03] MEDS: PANTOPRAZOLE 40 MG TABLET.DR. PO SCH (09:06)
[2018-07-03] MEDS: POTASSIUM CHLORIDE 10 MEQ TABLET.ER. PO SCH (09:06)
[2018-07-03] MEDS: FUROSEMIDE 20 MG TABLET PO SCH (09:06)
[2018-07-03] MEDS: LISINOPRIL 5 MG TABLET. PO SCH (09:07)
[2018-07-03] MEDS: POLYETHYLENE GLYCOL 3350 17 GM PACKET. PO SCH (09:07)
[2018-07-03] MEDS: LEVOTHYROXINE 25 MCG TABLET. PO SCH (09:07)
[2018-07-03 09:12] LABS: CALCIUM 8.1 mg/dL (8.5-10.1); CREATININE 1.2 mg/dL (0.6-1.0); GFR 54.6; POTASSIUM 3.6 mmol/L (3.5-5.1)
[2018-07-03] MEDS: ZIPRASIDONE 60 MG CAPSULE. PO SCH ×2 (09:36→20:36)
[2018-07-03] MEDS: FLUoxetine HCL 20 MG CAPSULE PO SCH (09:36)
[2018-07-03] MEDS: ASPIRIN ENTERIC COATED 81 MG TABLET.DR. PO SCH (09:37)
[2018-07-03 11:00] VITALS: BP 143/83
[2018-07-03] MEDS: INSULIN LISPRO 300 UNITS/3 ML INSULN.PEN. SQ SCH ×2 (11:55→17:00)
[2018-07-03 14:37] LABS: PROTHROMBIN TIME PATIENT 23.6 SEC (11.7-14.0)
[2018-07-03 15:00] VITALS: BP 135/89
[2018-07-03] MEDS ORDERED: WARF-31 PO ×3 (15:18)
[2018-07-03] MEDS ORDERED: WARFARIN 5 MG TABLET. PO ONE (16:00)
[2018-07-03 19:00] VITALS: BP 140/80
[2018-07-03] MEDS ORDERED: levETIRAcetam 500 MG TABLET PO SCH (21:00)
--- NOTE | 2018-07-03 21:58 | HP ---
ADMIT DATE: 07/02/2018 LOCATION: [facility]. REASON FOR ADMISSION TO THE HOSPITAL: Weakness, fatigue, nausea, vomiting, diarrhea for last 24 hours. HISTORY OF PRESENT ILLNESS: The patient is a 63-year-old female patient known to me. She has history of obesity, bipolar, diabetes, hypertension and also history of DVT, pulmonary embolism, on Coumadin. She was not feeling well. She says she had nausea, vomiting, diarrhea for 24 hours at least 3-4 times and she was very weak, came to the Emergency Room. Her creatinine is 1.4, was given fluids, admitted to the hospital. INR is therapeutic. PAST MEDICAL HISTORY: History of bipolar, diabetes, hypertension, hypothyroidism, schizophrenia, asthma, diastolic heart failure, pulmonary embolism. PAST SURGICAL HISTORY: Pacemaker, sick sinus syndrome, cholecystectomy, bladder lift surgery, hernia repair. ALLERGIES: No known drug allergies. PERSONAL HISTORY: Denies history of smoking, alcohol or drug abuse. Lives in a high-rise apartment, ambulates with a walker. MEDICATIONS AT HOME: Tylenol q.6h., aspirin 81 mg daily, fluoxetine 40 mg daily, Lasix 20 mg daily, Keppra 500 mg 2 tablets daily, levothyroxine 25 mcg daily, lisinopril 5 mg daily, Protonix 40 mg daily, MiraLax 17 grams daily, potassium 10 mEq daily, Geodon 60 mg twice a day, Coumadin 5 mg daily, vitamin D 50,000 daily. REVIEW OF SYMPTOMS: CARDIAC: No chest pain. GASTROINTESTINAL: Had some nausea, vomiting and diarrhea, but resolved she came to the hospital. LUNGS: Denies any shortness of breath than usual. Rest of the 14-system was reviewed. No fever. On examination, the patient denies eating any salad from any [employer] or any other place. PHYSICAL EXAMINATION: GENERAL: The patient is not in any distress. VITAL SIGNS: Temperature 98, pulse 72, respirations 16, blood pressure 148/92, 98 on room air. HEENT: Head is atraumatic. Pupils equal. Oral cavity: No congestion. NECK: Supple. Thyroid not enlarged. JVD not elevated. CHEST: Symmetrical. CARDIOVASCULAR: S1, S2. LUNGS: Clear. ABDOMEN: Soft, no mass palpable, nontender. EXTERNAL GENITALIA: No Mcwilliams. RECTAL: Deferred. EXTREMITIES: No calf tenderness, no edema. Pulses 1+. NEUROLOGIC: Cranial nerves intact. Power 5/5 in all extremities. LABORATORY DATA: Shows a white count of 6, hemoglobin 11.5, platelets 261. INR is 2.3. Electrolytes show sodium 137, potassium 3.3, chloride 103, bicarbonate 25, BUN 15, creatinine 1.4, glucose 104. LFTs were normal. Blood sugars around 90. Chest x-ray was negative. EKG done, report is pending. FINAL IMPRESSION: 1. Generalized weakness due to gastroenteritis and dehydration.. 2. Possible viral gastroenteritis; recent history of nausea, vomiting, diarrhea. 3. ARF due to dehydration ,secondary to nausea, vomiting and diarrhea.. 4. Diabetes. 5. Hypertension. 6. Hyperlipidemia. 7. History of pulmonary embolism, on Coumadin. 8. Morbid obesity. 9. History of psychotic disorders including bipolar and schizophrenia. PLAN: At this time, was admit to hospital, hydrate with IV fluids, monitor kidney function. Continue Coumadin. Keep INR between 2 and 3 and see how the patient's condition improves. SHANTE BERNAL MD DR: ZAKIYA/rima JOB#: [id number] / [id number] KARLO
[2018-07-03 23:00] VITALS: BP 133/66
[2018-07-04 02:35] VITALS: BP 126/76
[2018-07-04 05:06] LABS: PROTHROMBIN TIME PATIENT 23.8 SEC (11.7-14.0)
[2018-07-04 05:13] LABS: CALCIUM 8.4 mg/dL (8.5-10.1); CREATININE 1.1 mg/dL (0.6-1.0); GFR 60.3; POTASSIUM 3.7 mmol/L (3.5-5.1)
[2018-07-04] MEDS: LEVOTHYROXINE 25 MCG TABLET. PO SCH (06:33)
[2018-07-04] MEDS: PANTOPRAZOLE 40 MG TABLET.DR. PO SCH (06:33)
[2018-07-04 07:00] VITALS: BP 129/77
[2018-07-04] MEDS: INSULIN LISPRO 300 UNITS/3 ML INSULN.PEN. SQ SCH ×2 (08:00→11:56)
[2018-07-04] MEDS: ASPIRIN ENTERIC COATED 81 MG TABLET.DR. PO SCH (08:15)
[2018-07-04] MEDS: POTASSIUM CHLORIDE 10 MEQ TABLET.ER. PO SCH (08:15)
[2018-07-04] MEDS: FLUoxetine HCL 20 MG CAPSULE PO SCH (08:52)
[2018-07-04] MEDS: POLYETHYLENE GLYCOL 3350 17 GM PACKET. PO SCH (08:52)
[2018-07-04] MEDS: LISINOPRIL 5 MG TABLET. PO SCH (08:52)
[2018-07-04] MEDS: FUROSEMIDE 20 MG TABLET PO SCH (08:52)
[2018-07-04] MEDS: ZIPRASIDONE 60 MG CAPSULE. PO SCH (09:20)
--- NOTE | 2018-07-04 10:25 | PDOC ---
PROGRESS NOTES Subjective Subjective feels better today Objective Objective Vital Signs Date Time Temp Pulse Resp B/P (MAP) Pulse Ox O2 Delivery O2 Flow Rate FiO2 07/04/18 08:52 57 129/77 07/04/18 08:30 Room Air 07/04/18 07:00 97.8 18 99 97.8 Intake and Output 07/04/18 07:00 Intake Total 1155 ml Balance 1155 ml Intake Oral 180 ml IV Total 975 ml # Voids 5 Physical Exam Abdomen: Normal bowel sounds, Soft Heart: Regular rate, Normal S1, Normal S2 Extremities: No clubbing General: Alert HEENT: Atraumatic Lungs: Clear to auscultation MUSCULOSKELETAL: No swelling, Other Neck: Supple Neuro: Normal gait Psych/Mental Status: Mental status NL Skin: No breakdown Diagnosis Problem List Problems Medical Problems: (1) Weakness Status: Acute Assessment Assessment Problems Medical Problems: (1) Weakness Status: Acute FINAL IMPRESSION: ac renal insufficiency 1. Generalized weakness. 2. Possible gastroenteritis; history of nausea, vomiting, diarrhea. 3. Dehydration secondary to nausea, vomiting. 4. Diabetes. 5. Hypertension. 6. Hyperlipidemia. 7. History of pulmonary embolism, on Coumadin. 8. Morbid obesity. 9. History of psychotic disorders including bipolar and schizophrenia. PLAN: Cr 1.1 improved with hydration no more gi problems inr 2.2 on coumadin for h/o PE d/c home today Plan Plan of Care Problems Medical Problems: (1) Weakness Status: Acute Comment Review of Relevant I have reviewed the following items adelaida (where applicable) has been applied. Labs Laboratory Tests Test 07/03/18 11:31 07/03/18 14:20 07/03/18 16:48 07/04/18 04:15 Glucose (Fingerstick) 93 mg/dL (70-99) 78 mg/dL (70-99) Prothrombin Time 23.6 SEC (11.7-14.0) 23.8 SEC (11.7-14.0) Prothromb Time International Ratio 2.2 (0.8-1.1) 2.2 (0.8-1.1) Sodium Level 140 mmol/L (136-145) Potassium Level 3.7 mmol/L (3.5-5.1) Chloride Level 109 mmol/L (98-107) Carbon Dioxide Level 26 mmol/L (21-32) Anion Gap 5 (6-14) Blood Urea Nitrogen 9 mg/dL (7-20) Creatinine 1.1 mg/dL (0.6-1.0) Estimated GFR (Cockcroft-Gault) 60.3 Glucose Level 90 mg/dL (70-99) Calcium Level 8.4 mg/dL (8.5-10.1) Test 07/04/18 08:04 Glucose (Fingerstick) 88 mg/dL (70-99) Medications Current Medications Insulin Human Lispro (HumaLOG) 0-7 UNITS TIDWMEALS SQ ; Start 07/03/18 at 12:00 Levetiracetam (Keppra) 1,000 mg HS PO Last administered on 07/03/18at 20:36; Start 07/03/18 at 21:00 Non-Formulary Medication (Warfarin Sodium ) 5 mg QMWFSA PO ; Start 07/05/18 at 16:00; Status UNV Warfarin Sodium (Coumadin) 5 mg 1X WARF ONCE PO Last administered on at 16:12; Start 07/03/18 at 16:00; Stop 07/03/18 at 16:01; Status DC Warfarin Sodium (Coumadin) 5 mg 1X WARF ONCE PO ; Start 07/04/18 at 16:00; Stop 07/04/18 at 16:01 Vitals/I & O Vital Sign - Last 24 Hours 07/03/18 07/03/18 07/03/18 07/03/18 11:00 15:00 19:00 19:02 Temp 97.7 97.9 97.9 97.7 97.9 97.9 Pulse 62 63 60 Resp 18 18 18 B/P (MAP) 143/83 (103) 135/89 (104) 140/80 (100) Pulse Ox 94 100 99 O2 Delivery Room Air Room Air Room Air Room Air 07/03/18 07/04/18 07/04/18 07/04/18 23:00 02:35 07:00 08:30 Temp 97.9 98.3 97.8 97.9 98.3 97.8 Pulse 62 64 57 Resp 18 18 18 B/P (MAP) 133/66 (88) 126/76 (93) 129/77 (94) Pulse Ox 98 98 99 O2 Delivery Room Air Room Air Room Air Room Air 07/04/18 08:52 Pulse 57 B/P (MAP) 129/77 Intake and Output 07/03/18 07/03/18 07/04/18 15:00 23:00 07:00 Intake Total 1155 ml Balance 1155 ml SHANTE BERNAL MD Jul 04, 2018 10:25
[2018-07-04 11:00] VITALS: BP 147/87
[2018-07-04] MEDS ORDERED: WARFARIN 5 MG TABLET. PO ONE (16:00)
--- NOTE | 2018-07-05 10:01 | PDOC ---
Provider Note Provider Note Discharge summary dictated. #[id number]. SHANTE BERNAL MD Jul 05, 2018 10:01
--- NOTE | 2018-07-05 14:56 | DS ---
DATE OF DISCHARGE: 07/04/2018 REASON FOR ADMISSION TO THE HOSPITAL: General weakness secondary to gastroenteritis, probably viral. CONSULTATIONS: None. PROCEDURES: None. HOSPITAL COURSE: The patient is a 63-year-old female with history of pulmonary embolism, on Coumadin. She has chronic diastolic heart failure, diabetes as well as bipolar with some schizophrenia. She was having nausea, vomiting, diarrhea for last 24 hours, came to the Emergency Room for weakness. Creatinine was 1.4, was given IV fluids, came down to 1.1 and she is feeling better and she was discharged. No more nausea or vomiting or diarrhea at this point. Laboratory data was unremarkable except for creatinine from 1.4, came down to 1.1 with hydration. FINAL DIAGNOSES: 1. Generalized weakness secondary to gastroenteritis. 2. Viral gastroenteritis with nausea, vomiting, diarrhea. 3. Chronic diastolic heart failure, stable. 4. History of pulmonary embolism, on Coumadin. INR is therapeutic. 5. Morbid obesity. 6. History of bipolar with schizophrenia, stable. DISPOSITION: Home. DISCHARGE MEDICATIONS: See MRAD. SHANTE BERNAL MD DR: ZAKIYA/rima JOB#: [id number] / [id number]
[2018-07-05] MEDS ORDERED: NON FORMULARY ITEM (Warfarin Sodium 5 MG) PO SCH (16:00)
== END 2018-07-04 16:00 | disposition home or self-care (01) | DRG 391 ==
LOC: ER 13:55 → 5 NORTH 17:17
PROVIDERS: ADMIT Internal Medicine; ATTEND Internal Medicine
DX: A08.4 Viral intestinal infection, unspecified (principal); N17.0 Acute kidney failure with tubular necrosis; I50.32 Chronic diastolic (congestive) heart failure; Z68.43 Body mass index [BMI] 50.0-59.9, adult; I11.0 Hypertensive heart disease with heart failure; E11.9 Type 2 diabetes mellitus without complications; E66.9 Obesity, unspecified; J45.909 Unspecified asthma, uncomplicated; F20.9 Schizophrenia, unspecified; E03.9 Hypothyroidism, unspecified; Z95.0 Presence of cardiac pacemaker; E86.0 Dehydration; E78.5 Hyperlipidemia, unspecified; E66.01 Morbid (severe) obesity due to excess calories; N28.9 Disorder of kidney and ureter, unspecified; Z90.710 Acquired absence of both cervix and uterus; Z79.01 Long term (current) use of anticoagulants; Z86.718 Personal history of other venous thrombosis and embolism; Z86.711 Personal history of pulmonary embolism; F31.9 Bipolar disorder, unspecified
CPT/HCPCS: 36415; 71045; 80048; 80053; 82553; 82962; 84484; 85025; 85379; 85610; 85730; 93005; J1815; J7030; 97535; 99285-25

== ENCOUNTER → 2018-08-26 | Outpatient (CLI) | payer MEDICARE ==
[~2018-08-26] MED LIST changes: +WARF-31 PO
--- NOTE | 2018-08-27 09:54 | SLEEP ---
DATE OF STUDY: 08/26/2018 ATTENDING PHYSICIAN: Dr. Gómez. The patient is a 63-year-old who weighs 325 pounds with a BMI of 53. The patient had a previous sleep study and was found to have mild DONALD with worsening during REM sleep. The patient was clinically symptomatic, as a result was referred back to sleep lab for CPAP titration study. The patient's AHI was 9 per hour with a REM AHI of 41 per hour. During the night study, the patient spent 469 minutes in bed and slept for 431 minutes with a sleep efficiency of 92%. Sleep latency was 2 minutes with a REM latency of 257 minutes. Overall, sleep architecture showed normal stage 1 sleep, increased stage 2 sleep, normal slow wave and normal REM sleep. EKG monitoring revealed normal sinus rhythm, average heart rate of 66 beats per minute, no sustained arrhythmias were observed. PLMS were seen at index of 2 per hour and 1 per hour caused EEG arousals. The patient was started on CPAP at 5 cm water and titrated up to 11 cm water. At the final pressure, the patient slept for 57 minutes. The patient had supine sleep throughout and no REM sleep was observed. The patient's AHI was reduced to 0 per hour. Oxygen saturation remained above 92%. The patient used a large size nasal mask. IMPRESSION: 1. Sleep apnea diagnosed by previous sleep study. 2. No clinically significant PLMS. RECOMMENDATIONS: 1. CPAP at 11 cm water completely eliminated the patient's sleep apnea and should be used on a nightly basis. 2. Follow up in 4-6 weeks to assess compliance with CPAP and to document clinical improvement. 3. Weight loss is strongly advised. 4. Avoid [employer] depressants. 5. Caution regarding driving until symptoms of sleep apnea resolve with the use of CPAP. ZHANG MARSH MD DR: ANDRES/rima JOB#: [id number] / [id number] bro GÓMEZ DR
== END | disposition home or self-care (01) ==
LOC: SLPLAB 19:01
PROVIDERS: ATTEND Internal Medicine
DX: G47.30 Sleep apnea, unspecified (principal); I10 Essential (primary) hypertension; E66.01 Morbid (severe) obesity due to excess calories; E03.9 Hypothyroidism, unspecified; J44.9 Chronic obstructive pulmonary disease, unspecified; E78.5 Hyperlipidemia, unspecified; E11.51 Type 2 diabetes mellitus with diabetic peripheral angiopathy without gangrene
CPT/HCPCS: 95811

== ENCOUNTER → 2018-10-03 | Outpatient (CLI) | payer MEDICARE ==
[~2018-10-03] MED LIST changes: +SENN1TAB PO; -SENN1TAB19 PO
--- NOTE | 2018-10-03 10:33 | KCIC ---
Bilateral digital screening mammograms: Reason for examination: Routine screening. Comparison is made to previous studies dated back to 07/27/2015. Interpretation was made with the benefit of CAD. The skin and nipples show no abnormalities. No abnormal lymph nodes are seen. The breast parenchyma is predominantly fatty. (Breast density: Category A.) There are no dominant masses, suspicious calcifications or architectural distortions. Benign appearing calcifications are again seen. Impression: No evidence of malignancy. Recommend routine screening. BI-RADS Category 2: Benign. "Our facility is accredited by the [employer] Mammography Program." This patient's information has been entered into a reminder system for the patient to be notified with the results of her examination and a target date for the next mammogram. Electronically signed by: Winter Engel MD (10/03/2018 10:30 AM) [facility]
--- NOTE | 2018-10-03 11:00 | KCIC ---
EXAM: Dual energy x-ray absorptiometry (DEXA). HISTORY: Postmenopausal female presents for osteoporosis screening. COMPARISON: None. TECHNIQUE: Dual energy x-ray absorptiometry of the lumbar spine and left hip was performed. Calculation of bone mineral density based on standard deviations above or below the expected young adult normal value (T-score) was completed. FINDINGS: The average bone mineral density in the 1st through 4th lumbar vertebrae is 1.450 g/cmxcm, corresponding with a T-score of 3.7. The average total bone mineral density in the left hip is 0.893 g/cmxcm, corresponding with a T-score of -0.4. IMPRESSION: Normal bone mineral density. Note: Definitions established by the World Health Organization: 1. Normal: T-score is -1.0 or above. 2. Osteopenia: T-score is between -1.0 and -2.5 . 3. Osteoporosis: T-score is -2.5 or below. Electronically signed by: Ese Marques MD (10/03/2018 10:57 AM) [facility]
== END | disposition home or self-care (01) ==
LOC: KCIC MAMMO 09:07
PROVIDERS: ATTEND Internal Medicine
DX: Z12.31 Encounter for screening mammogram for malignant neoplasm of breast (principal); E28.39 Other primary ovarian failure; Z78.0 Asymptomatic menopausal state
CPT/HCPCS: 77067; 77080

== ENCOUNTER → 2019-02-25 | Outpatient (CLI) | payer MEDICARE ==
[~2019-02-25] MED LIST changes: -GABA-586 PO; +GABA300C18 PO; +REGADENOSON 0.4 MG/5 ML DISP.SYRIN. IV ONE
--- NOTE | 2019-02-26 11:25 | RAD ---
MR#: [id number] Date of Study: 02/26/2019 Ordering Physician: SAIRA GRAF, Referring Physician: ANUPAMA GAMING Tech: RT Imer Sommer) (N) APPROVED REPORT Test Type: Pharmacological Stress Nurse/Tech: Marimar Ashford Test Indications: NSVT Cardiac History: CAD, HTN, PPM, See EMR Medications: See EMR Medical History: Seizures, DM, Asthma, See EMR Resting ECG: SR/ AV Paced Resting Heart Rate: 68 bpm Resting Blood Pressure: 148/86mmHg Pretest Chest Pain: No chest pain Nurse/Tech Notes Heart tones regular, Lungs CTA and diminished in the bases. Consent: The procedure was explained to the patient in lay terms. Informed consent was witnessed. Edwar eout was entered into [employer]. History and Stress Test performed by RT Mervat (Sudeep) (N) Pharm. Details Pharmacologic stress testing was performed using 0.4mg per 5ml of regadenoson given intravenously ove r 7-10 seconds. Stress Symptoms No chest pain or symptoms. POST EXERCISE Reason for Termination: Infusion complete Max HR: 98 bpm Max Blood Pressure: 153/72mmHg Chest Pain: No. Arrhythmia: No. ST Change: No. INTERPRETATION Stress EKG Conclusion: No evidence of stress induced EKG changes. Imaging Protocol IMAGE PROTOCOL: Rest Tc-99m/stress Tc-99m 2 days Rest: Stress: Viability: Radiopharm.Tc99m BpcogvlnkJu90y Sestamibi Lasc88zSd 34mCi Duration 15min. 15min. Img Date 02/25/2019 02/26/2019 Inj-Img Zryu94ntu. 60min. Rest Admin Site:IV - Left HandAdministrator:RT Imer Crowell)(N) Stress Admin Site: IV - Left HandAdministrator: RT Imer Crowell)(N) STRESS DATA End Diast. Vol.118.0mlLVEDV index BSA49.0ml End Syst. Vol.37.0mlLVESV index BSA15.0ml Myocardial Whbw312.0gEject. Bkbaetpr70.0% Stress Scores Regional WT0.00Summed WT10.00 Regional WM0.00Summed WM0.00 LV Perfusion There is a moderate sized severe intensity basal to mid anteroseptal and anterior fixed defect sugges tive of prior infarct versus artifact related to breast attenuation. Wall Motion Normal wall motion. LV Perf. Quant 17 Seg. SSS7.00 17 Seg. SRS8.00 17 Seg. SDS0.00 Stress Defect Extent (% LAD)21.30Rest Defect Extent (% LAD)11.30Rev. Defect Extent (% LAD)14.40 Stress Defect Extent (% LCX) 13.80Rest Defect Extent (% LCX)8.80Rev. Defect Extent (% LCX)10.00 Stress Defect Extent (% RCA)0.00Rest Defect Extent (% RCA)0.00Rev. Defect Extent (% RCA)0.00 Stress Defect Extent (% JOSEPH)13.70Rest Defect Extent (% JOSEPH)7.60Rev. Defect Extent (% JOSEPH)9.80 Other Information Quality:Good Risk Assessment: Low Risk Conclusion 1. No evidence of EKG changes with stress testing. 2. Prior infarct versus artifact. No ischemia. 3. Low risk study. 4. EF > 60%. Signed by : Saira Graf, Electronically Approved : 02/26/2019 11:24:35
--- NOTE | 2019-02-26 11:27 | CARD ---
MR#: [id number] Date of Study: 02/26/2019 Ordering Physician: SAIRA MULLER, Referring Physician: SAIRA MULLER, Tech: Aiyana Pineda [facility] APPROVED REPORT EXAM: Two-dimensional and M-mode echocardiogram with Doppler and color Doppler. Other Information Quality : Fair INDICATION Nonsustained Ventricular Tachycardia Surgery/Intervention ICD/Pacemaker: 2D DIMENSIONS Left Atrium(2D)3.6 (1.6-4.0cm)IVSd1.1 (0.7-1.1cm) Aortic Root(2D)2.4 (2.0-3.7cm)LVDd4.2 (3.9-5.9cm) LVOT Diameter2.0 (1.8-2.4cm)PWd0.8 (0.7-1.1cm) LVDs2.2 (2.5-4.0cm)FS (%) 30.0 % SV62.0 mlLVEF(%)60.0 (>50%) Aortic Valve AoV Peak [place]cadio.192.8cm/sAoV VTI34.5cm AO Peak GR.14.9mmHgLVOT Peak [place]cadio.156.9cm/s AO Mean GR.7mmHgAVA (VMAX)2.55cm2 MARIEL (VTI)2.28vk3LI P 1/2 Wdpk4395uz Mitral Valve MV E Ykhpqewt588.6cm/sMV DECEL LJST858bx MV A Asztmefx35.3cm/sE/A Ratio1.1 Tricuspid Valve TR P. Zwoiitta535ug/sRAP HVJYXNLR87dhXx TR Peak Gr.81dePpQQVA97vxCg Pulmonary Vein S1 Vtyhppmp05.4cm/sD2 Aaltfprf35.3cm/s LEFT VENTRICLE The left ventricle is normal size. There is normal left ventricular wall thickness. The left ventricu lar systolic function is normal and the ejection fraction is within normal range. The Ejection Fracti on is 60-65%. There is normal LV segmental wall motion. Transmitral Doppler flow pattern is Grade I-a bnormal relaxation pattern. RIGHT VENTRICLE The right ventricle is normal size. The right ventricular systolic function is normal. There is a pac emaker lead in the right ventricle. ATRIA The left atrium size is normal. The right atrium size is normal. A pacemaker is seen in the right atr ium consistent with history. The interatrial septum is intact with no evidence for an atrial septal d efect or patent foramen ovale as noted on 2-D or Doppler imaging. AORTIC VALVE Cannot rule out bicuspid aortic valve. Doppler and Color Flow revealed trace to mild aortic regurgita tion. There is no significant aortic valvular stenosis. MITRAL VALVE The mitral valve is calcified but opens well. There is no evidence of mitral valve prolapse. There is no mitral valve stenosis. Doppler and Color-flow revealed trace mitral regurgitation. TRICUSPID VALVE The tricuspid valve is normal in structure and function. Doppler and Color Flow revealed trace tricus pid regurgitation. There is moderate pulmonary hypertension. The PA pressure was estimated at 50 mmHg . There is no tricuspid valve stenosis. PULMONIC VALVE The pulmonic valve is not well visualized. Doppler and Color Flow revealed no pulmonic valvular regur gitation. There is no pulmonic valvular stenosis. GREAT VESSELS The aortic root is normal in size. The ascending aorta is not well seen. The IVC is dilated and colla pses <50% with inspiration. PERICARDIAL EFFUSION There is no evidence of significant pericardial effusion. Critical Notification Critical Value: No <Conclusion> The left ventricular systolic function is normal and the ejection fraction is within normal range. Th e Ejection Fraction is 60-65%. There is normal LV segmental wall motion. There is a pacemaker lead in the right ventricle. Cannot rule out bicuspid aortic valve. Doppler and Color Flow revealed trace tricuspid regurgitation. There is moderate pulmonary hypertensi on. The PA pressure was estimated at 50 mmHg. Signed by : Saira Muller, Electronically Approved : 02/26/2019 11:26:45
== END | disposition home or self-care (01) ==
LOC: NM 08:02
PROVIDERS: ATTEND Internal Medicine Cardiovascular Disease
DX: I08.0 Rheumatic disorders of both mitral and aortic valves (principal); I27.20 Pulmonary hypertension, unspecified; I47.2 Ventricular tachycardia; Z95.0 Presence of cardiac pacemaker
CPT/HCPCS: 78452; A9500; 93017; 93306; 96376; J2785

== ENCOUNTER 2019-04-02 14:36 | Emergency (ER) | payer MEDICARE ==
[~2019-04-02] VITALS: Ht 167.6 cm; Wt 142.9 kg
[~2019-04-02 14:36] MED LIST changes: -REGADENOSON 0.4 MG/5 ML DISP.SYRIN. IV ONE
[2019-04-02 14:46] VITALS: BP 140/85
--- NOTE | 2019-04-02 15:36 | PHYS DOC ---
Past Medical History Past Medical History: Anxiety, Asthma, Bipolar, CHF, Depression, Diabetes-Type II, Hypertension, Hypothyroid, Seizure, Schizophrenia, Other Additional Past Medical Histor: PE Past Surgical History: Cholecystectomy, Pacemaker, Other Additional Past Surgical Histo: bladder lift, partial hysterectomy, hernia repair Alcohol Use: None Drug Use: None Adult General Chief Complaint Chief Complaint: MEDICATION REFILL HPI HPI Patient is a 63-year-old female, with numerous medical and psychiatric medical problems in the past, who presents to the emergency department via EMS. She states she ran out of her LTG Exam [employer] Platform and [employer] a few days ago, and also states she has not been taking her medications regularly over the past few days. She states that she came into the emergency department today via EMS because she just did not feel well, and "could not get my thoughts together". She denies any physical pain, or recent falls. She denies any chest pain or shortness of breath. There are no alleviating or exacerbating factors to her symptoms. Review of Systems Review of Systems Constitutional: Denies fever or chills [] Eyes: Denies change in visual acuity, redness, or eye pain [] HENT: Denies nasal congestion or sore throat [] Respiratory: Denies cough or shortness of breath [] Cardiovascular: The patient denies any shortness of breath, chest pain, palpitations, or orthopnea [] GI: Denies abdominal pain, nausea, vomiting, bloody stools or diarrhea [] : Denies dysuria or hematuria [] Musculoskeletal: Denies back pain or joint pain [] Integument: Denies rash or skin lesions [] Neurologic: Denies headache, focal weakness or sensory changes [] Endocrine: Denies polyuria or polydipsia [] All other systems were reviewed and found to be within normal limits, except as documented in this note. Current Medications Current Medications Current Medications Medications (Trade) Dose Ordered Sig/Neo Start Time Stop Time Status Last Admin Dose Admin Fluoxetine HCl (PROzac) 40 mg 1X ONCE 04/02/19 18:00 04/02/19 18:01 Hydroxyzine HCl (Atarax) 10 mg 1X ONCE 04/02/19 18:00 04/02/19 18:01 Allergies Allergies Allergies Coded Allergies Type Severity Reaction Last Updated Verified No Known Medication Allergies Allergy Unknown 11/26/14 Yes Physical Exam Physical Exam PHYSICAL EXAM: CONSTITUTIONAL: Well developed, well nourished HEAD: normocephalic, atraumatic EENT: PERRL, EOMI. Conjunctivae normal color, sclerae non-icteric; moist mucous membranes. NECK: Supple, non-tender; no meningismus. LUNGS: Lungs CTA, breathing even and unlabored. Normal air movement. HEART: Regular rate and rhythm, no murmur CHEST: No deformity; non-tender ABDOMEN: The abdomen is soft, and non-tender, no masses or bruits. EXTREM: Normal ROM; no deformity, no calf tenderness. Normal pulses palpable in all extremities. There is no pedal edema. SKIN: No rash; no diaphoresis NEURO: Alert; normal speech and cognition; CN's grossly intact; strength grossly intact without focal deficit. BACK: No CVA TTP. PSYCHIATRIC: The patient exhibits a flat affect, denies suicidal or homicidal ideation. Current Patient Data Vital Signs Vital Signs Date Time Temp Pulse Resp B/P (MAP) Pulse Ox O2 Delivery O2 Flow Rate FiO2 04/02/19 14:46 97.6 92 28 140/85 (103) 98 Room Air 97.6 Lab Values Laboratory Tests Test 04/02/19 15:08 White Blood Count 4.5 x10^3/uL (4.0-11.0) Red Blood Count 4.20 x10^6/uL (3.50-5.40) Hemoglobin 11.4 g/dL (12.0-15.5) L Hematocrit 35.2 % (36.0-47.0) L Mean Corpuscular Volume 84 fL (79-100) Mean Corpuscular Hemoglobin 27 pg (25-35) Mean Corpuscular Hemoglobin Concent 32 g/dL (31-37) Red Cell Distribution Width 15.5 % (11.5-14.5) H Platelet Count 263 x10^3/uL (140-400) Neutrophils (%) (Auto) 51 % (31-73) Lymphocytes (%) (Auto) 39 % (24-48) Monocytes (%) (Auto) 8 % (0-9) Eosinophils (%) (Auto) 2 % (0-3) Basophils (%) (Auto) 1 % (0-3) Neutrophils # (Auto) 2.3 x10^3uL (1.8-7.7) Lymphocytes # (Auto) 1.8 x10^3/uL (1.0-4.8) Monocytes # (Auto) 0.3 x10^3/uL (0.0-1.1) Eosinophils # (Auto) 0.1 x10^3/uL (0.0-0.7) Basophils # (Auto) 0.1 x10^3/uL (0.0-0.2) Prothrombin Time 24.4 SEC (11.7-14.0) H Prothrombin Time INR 2.2 (0.8-1.1) H PTT 43 SEC (24-38) H Sodium Level 140 mmol/L (136-145) Potassium Level 4.3 mmol/L (3.5-5.1) Chloride Level 104 mmol/L (98-107) Carbon Dioxide Level 26 mmol/L (21-32) Anion Gap 10 (6-14) Blood Urea Nitrogen 16 mg/dL (7-20) Creatinine 1.2 mg/dL (0.6-1.0) H Estimated GFR (Cockcroft-Gault) 54.6 BUN/Creatinine Ratio 13 (6-20) Glucose Level 96 mg/dL (70-99) Calcium Level 9.3 mg/dL (8.5-10.1) Total Bilirubin 0.4 mg/dL (0.2-1.0) Aspartate Amino Transferase (AST) 20 U/L (15-37) Alanine Aminotransferase (ALT) 29 U/L (14-59) Alkaline Phosphatase 73 U/L (46-116) Total Protein 7.0 g/dL (6.4-8.2) Albumin 3.3 g/dL (3.4-5.0) L Albumin/Globulin Ratio 0.9 (1.0-1.7) L Thyroid Stimulating Hormone (TSH) 2.192 uIU/mL (0.358-3.74) Free Thyroxine 0.98 ng/dL (0.76-1.46) Salicylates Level < 2.8 mg/dL (2.8-20.0) L Salicylate Last Dose Date Unknown Salicylate Last Dose Time Unknown Acetaminophen Level < 2 mcg/ml (10-30) L Acetaminophen Last Dose Date Unknown Acetaminophen Last Dose Time Unknown Ethyl Alcohol Level < 10 mg/dL (0-10) Laboratory Tests 04/02/19 15:08 Laboratory Tests 04/02/19 15:08 EKG EKG Normal sinus rhythm at a rate of 90 beats for minute, left axis deviation, incomplete left bundle-branch block, without acute ischemic ST/T changes.[] Radiology/Procedures Radiology/Procedures [] Course & Med Decision Making Course & Med Decision Making Pertinent Lab studies reviewed. (See chart for details) []5:30 PM: The patient's condition remains a stable. She does have Geodon with her, and her medication bottle, but states she has been out of her Prozac for the past 2 days. There was some confusion about this medication being delivered, the patient states that it had not been delivered to her home, where the pharmacy had verified that it had been. However, the PAT draw bench operator helper is able to determine that the medication was actually delivered while the patient was in the emergency department. Thus, the patient does have a supply of her medication at home. She has also been out of her hydroxyzine under the same circumstances but this is also available at her house currently. She'll be given a dose of each of these in the emergency department, and released back home. She has no other acute issue at this time. Dragon Disclaimer Dragon Disclaimer This electronic medical record was generated, in whole or in part, using a voice recognition dictation system. Departure Departure Impression: Primary Impression: Schizophrenia Additional Impression: Medication refill Disposition: 01 HOME, SELF-CARE Condition: STABLE Referrals: FINA PAVON DO (PCP) Patient Instructions: Depression, Adult, Medication Refill, Emergency Department, Schizophrenia Problem Qualifiers SAVANAH WALKER MD April 02, 2019 15:36
[2019-04-02 15:39] LABS: BASO # 0.1 x10^3/uL (0.0-0.2); BASO % 1 % (0-3); EOS # 0.1 x10^3/uL (0.0-0.7); EOS % 2 % (0-3); HEMATOCRIT 35.2 % (36.0-47.0); HEMOGLOBIN 11.4 g/dL (12.0-15.5); LYMPH # 1.8 x10^3/uL (1.0-4.8); LYMPH % 39 % (24-48); MEAN CORPUSCULAR HEMOGLOBIN 27 pg (25-35); MEAN CORPUSCULAR HGB CONC 32 g/dL (31-37); MEAN CORPUSCULAR VOLUME 84 fL (79-100); MONO # 0.3 x10^3/uL (0.0-1.1); MONO % 8 % (0-9); NEUT # 2.3 x10^3uL (1.8-7.7); NEUT % 51 % (31-73); PLATELET COUNT 263 x10^3/uL (140-400); RED CELL DISTRIBUTION WIDTH 15.5 % (11.5-14.5); WHITE BLOOD COUNT 4.5 x10^3/uL (4.0-11.0)
[2019-04-02 15:58] LABS: CALCIUM 9.3 mg/dL (8.5-10.1); CREATININE 1.2 mg/dL (0.6-1.0); GFR 54.6; POTASSIUM 4.3 mmol/L (3.5-5.1)
[2019-04-02 16:02] LABS: PROTHROMBIN TIME PATIENT 24.4 SEC (11.7-14.0)
[2019-04-02 16:04] LABS: ALBUMIN 3.3 g/dL (3.4-5.0); ALBUMIN/GLOBULIN RATIO 0.9 (1.0-1.7); TOTAL BILIRUBIN 0.4 mg/dL (0.2-1.0)
[2019-04-02 16:07] LABS: ACETAMIN < 2 mcg/ml (10-30); SALIC < 2.8 mg/dL (2.8-20.0)
[2019-04-02 16:08] LABS: ETHANOL < 10 mg/dL (0-10)
[2019-04-02 16:11] LABS: FREE T4 0.98 ng/dL (0.76-1.46); THYROID STIM HORMONE (TSH) 2.192 uIU/mL (0.358-3.74)
--- NOTE | 2019-04-02 16:24 | EKG ---
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
[2019-04-02] MEDS ORDERED: hydrOXYzine 10 MG TABLET PO ONE (18:00)
[2019-04-02] MEDS ORDERED: FLUoxetine HCL 20 MG CAPSULE PO ONE (18:00)
== END 2019-04-02 18:30 | disposition home or self-care (01) ==
LOC: ER 14:36 → 6 SOUTH 17:30 → UNDOADMIN 17:30 → ER 18:30
DX: F20.9 Schizophrenia, unspecified (principal); Z76.0 Encounter for issue of repeat prescription; F31.9 Bipolar disorder, unspecified; I11.0 Hypertensive heart disease with heart failure; I50.9 Heart failure, unspecified; E11.9 Type 2 diabetes mellitus without complications; F41.9 Anxiety disorder, unspecified; J45.909 Unspecified asthma, uncomplicated; E03.9 Hypothyroidism, unspecified; Z86.711 Personal history of pulmonary embolism; Z95.0 Presence of cardiac pacemaker
CPT/HCPCS: 36415; 80053; 80329; 84439; 84443; 85025; 85610; 85730; 93005; 99285; G0480

== ENCOUNTER → 2019-07-03 | Outpatient (CLI) | payer MEDICARE ==
[~2019-07-03] MED LIST changes: -DULO30CA43 PO; +DULO30CA44 PO; +MONT10TA49 PO; -MONT10TA9 PO; -PANT40TA5 PO; +PANT40TA77 PO
--- NOTE | 2019-07-03 15:43 | RAD ---
CT HEAD WO CONTRAST History: Head injury. Headache. Comparison: None. Technique: Noncontrast CT imaging was performed of the head. Exposure: One or more of the following individualized dose reduction techniques were utilized for this examination: 1. Automated exposure control 2. Adjustment of the mA and/or kV according to patient size 3. Use of iterative reconstruction technique. Findings: No intracranial hemorrhage. No mass effect. No hydrocephalus. Extra-axial spaces are unremarkable. Left facial soft tissue swelling. Imaged orbits are unremarkable. Imaged paranasal sinuses and mastoid air cells are clear. Impression: 1. No acute intracranial abnormality. 2. Left facial soft tissue swelling. Electronically signed by: Deni Alas DO (07/03/2019 3:40 PM) [facility]
== END | disposition home or self-care (01) ==
LOC: CT 15:06
PROVIDERS: ATTEND Internal Medicine
DX: R22.0 Localized swelling, mass and lump, head (principal); R51 Headache; W19.XXXA Unspecified fall, initial encounter; Y93.89 Activity, other specified; Y92.89 Other specified places as the place of occurrence of the external cause; Y99.8 Other external cause status
CPT/HCPCS: 70450

== ENCOUNTER → 2019-10-09 | Outpatient (CLI) | payer MEDICARE ==
[~2019-10-09] MED LIST changes: +OMEP40CA45 PO; -OMEP40CA5 PO; +POTASSIUM CHLO10 ME1 PO; -SENN1TAB PO; +[UNRECOGNIZED DRUG - CODE] PO
--- NOTE | 2019-10-09 10:36 | RAD ---
DATE: October 09, 2019 EXAM: DIGITAL SCREEN BILAT W/CAD HISTORY: Screening study. COMPARISON: 2017 and 2018 This study was interpreted with the benefit of Computerized Aided Detection (CAD). FINDINGS: Breast Density: FATTY The breast parenchyma is primarily fatty replaced. Breast parenchyma level density A.. There is a new nodular density seen within the medial aspect of the right breast at the nipple level. Recommend focal compression views in the CC and MLO projections and a 90 degree lateral medial view of the right breast for further evaluation followed by right breast sonography. The left breast is stable. No clustering of pleomorphic microcalcifications are evident on either side. IMPRESSION: New nodular density of the right breast. Additional imaging is needed. BI-RADS CATEGORY: 0 INCOMPLETE: NEEDS ADDITIONAL IMAGING EVALUATION AND/OR PRIOR MAMMOGRAMS FOR COMPARISON. RECOMMENDED FOLLOW-UP: ADD ADDITIONAL IMAGING PQRS compliance statement: Patient information was entered into a reminder system with a target due date now for the next imaging study. Mammography is a sensitive method for finding small breast cancers, but it does not detect them all and is not a substitute for careful clinical examination. A negative mammogram does not negate a clinically suspicious finding and should not result in delay in biopsying a clinically suspicious abnormality. "Our facility is accredited by the [employer] Mammography Program." The patient's breast density may affect the ability of mammography to detect breast cancer. There are 4 categories of breast density, A, B, C and D. Breast density A means that most of the breast tissue is replaced with adipose tissue and therefore is not dense. Breast density B means that the breast tissue is mildly dense and scattered. Breast density C means that the breast tissue is heterogeneously dense. Breast density D means that the breast tissue is very dense. Breast densities especially C and D may decrease the sensitivity of mammography to detect breast cancer. Therefore, the patient may benefit from 3-D breast mammography (3D breast tomography) as a part of their screening mammogram. Insurance may or may not pay for this additional imaging. The patient's breast density based on today's mammogram is category A.
== END | disposition home or self-care (01) ==
LOC: MAMMO 09:44
PROVIDERS: ATTEND Internal Medicine
DX: Z12.31 Encounter for screening mammogram for malignant neoplasm of breast (principal)
CPT/HCPCS: 77067

== ENCOUNTER → 2019-10-23 | Outpatient (CLI) | payer MEDICARE ==
--- NOTE | 2019-10-23 14:22 | RAD ---
DATE: 10/23/2019. EXAM: DIGITAL DIAGNOSTIC RT, BREAST RIGHT. HISTORY: Right breast lesion. Additional imaging is requested. COMPARISON: 10/09/2019. FINDINGS: Breast Density: SCATTERED The breast parenchyma shows scattered fibroglandular densities. Breast parenchyma level B.. The focus of concern medially on the right persists on spot compression. It appears to be in a slightly different position, likely secondary to difficult positioning given patient immobility. It has indistinct margins. Its correlate on the lateral projection is unclear. Elsewhere, coarse calcifications are benign. On today's sonography, there is an immediately subcutaneous hyperechoic focus at the 1:00 position 7 cm from the nipple that measures 16 x 8 mm. It contains a small hypoechoic focus. This most likely represents changes of fat necrosis but is indeterminate. A pacemaker is noted elsewhere. BI-RADS CATEGORY: 4 SUSPICIOUS ABNORMALITY-BIOPSY SHOULD BE CONSIDERED. RECOMMENDED FOLLOW-UP: BIO BIOPSY RECOMMENDED. 1. Ultrasound-guided biopsy of an indeterminate mass likely reflecting fat necrosis at the right 1:00 position 7 cm from the nipple. Sonographic survey of the right axilla is recommended at that time. PQRS compliance statement: Patient information was entered into a reminder system with a target due date (now) for the next mammogram. Mammography is a sensitive method for finding small breast cancers, but it does not detect them all and is not a substitute for careful clinical examination. A negative mammogram does not negate a clinically suspicious finding and should not result in delay in biopsying a clinically suspicious abnormality. "Our facility is accredited by the [employer] Mammography Program."
== END | disposition home or self-care (01) ==
LOC: MAMMO 12:24
PROVIDERS: ATTEND Internal Medicine
DX: R92.8 Other abnormal and inconclusive findings on diagnostic imaging of breast (principal)
CPT/HCPCS: 76641; 77065

== ENCOUNTER 2019-11-06 18:17 | Emergency (ER) | payer MEDICARE ==
[~2019-11-06] VITALS: Ht 157.5 cm; Wt 152.0 kg
--- NOTE | 2019-11-06 22:49 | RAD ---
Right upper Extremity Venous Doppler Ultrasound History: Pain and bruising Comparison: None Procedure: Color flow, duplex, spectral analysis and 2D images are obtained with and without compression in the area of the deep and superficial venous structures of the upper , specifically the axillary, brachials, radial and ulnar deep veins and the superficial basilic and cephalic veins. Color Doppler and venous waveform analysis was also applied to the left jugular and subclavian vein. Findings: There is normal duplex flow, color flow and compressibility of all visualized vein segments. No evidence of deep venous thrombus is present. There is a 1.7 x 2.4 x 1.1 cm hematoma. Impression: Normal venous Doppler ultrasound with no evidence of DVT. Electronically signed by: Silvano Dillard III, MD (11/06/2019 10:46 PM) [facility]
--- NOTE | 2019-11-06 23:04 | PHYS DOC ---
Past Medical History Past Medical History: Anxiety, Asthma, Bipolar, CHF, Depression, Diabetes-Type II, Hypertension, Hypothyroid, Seizure, Schizophrenia, Other Additional Past Medical Histor: PE (JAX ARMSTRONG APRN) Past Surgical History: Cholecystectomy, Pacemaker, Other Additional Past Surgical Histo: bladder lift, partial hysterectomy, hernia repair (JAX ARMSTRONG APRN) Alcohol Use: None Drug Use: None (JAX ARMSTRONG APRN) Attending Signature I have participated in the care of this patient and I have reviewed and agree with all pertinent clinical information above including history, exam, and recommendations. (DAYDAY ALCALA MD) Adult General Chief Complaint Chief Complaint: UPPER EXTREMITY SWELLING HPI HPI Patient is a 64 year old female who presents with many years he use that she had a right bicep small knot with bruising around it. States it is tender. She denies any injury. Patient is currently on warfarin as she has had a history of a pulmonary embolism and does have a pacemaker. (JAX ARMSTRONG APRN) Review of Systems Review of Systems Integument: Right bicep hematoma. Denies rash or skin lesions [] All other systems were reviewed and found to be within normal limits, except as documented in this note. (JAX ARMSTRONG APRN) Allergies Allergies Allergies Coded Allergies Type Severity Reaction Last Updated Verified No Known Medication Allergies Allergy Unknown 11/26/14 Yes (DAYDAY ALCALA MD) Physical Exam Physical Exam Constitutional: Well developed, well nourished, no acute distress, non-toxic appearance. [] HENT: Normocephalic, atraumatic, bilateral external ears normal, oropharynx moist, no oral exudates, nose normal. [] Eyes: PERRLA, EOMI, conjunctiva normal, no discharge. [] Neck: Normal range of motion, no tenderness, supple, no stridor. [] Cardiovascular:Heart rate regular rhythm, no murmur [] Lungs & Thorax: Bilateral breath sounds clear to auscultation [] Abdomen: Bowel sounds normal, soft, no tenderness, no masses, no pulsatile masses. [] Skin: Right bicep hematoma. Warm, dry, no erythema, no rash. [] Back: No tenderness, no CVA tenderness. [] Extremities: right bicep tenderness, no cyanosis, no clubbing, ROM intact, no edema. [] Neurologic: Alert and oriented X 3, normal motor function, normal sensory function, no focal deficits noted. [] Psychologic: Affect normal, judgement normal, mood normal. [] (JAX ARMSTRONG APRN) Current Patient Data Vital Signs Vital Signs Date Time Temp Pulse Resp B/P (MAP) Pulse Ox O2 Delivery O2 Flow Rate FiO2 11/07/19 00:18 60 191/86 (121) 93 Room Air 11/06/19 20:10 97.8 18 97.8 (DAYDAY ALCALA MD) Lab Values Laboratory Tests Test 11/06/19 22:53 11/07/19 00:15 White Blood Count 5.6 x10^3/uL (4.0-11.0) Red Blood Count 4.01 x10^6/uL (3.50-5.40) Hemoglobin 11.1 g/dL (12.0-15.5) L Hematocrit 33.9 % (36.0-47.0) L Mean Corpuscular Volume 85 fL (79-100) Mean Corpuscular Hemoglobin 28 pg (25-35) Mean Corpuscular Hemoglobin Concent 33 g/dL (31-37) Red Cell Distribution Width 15.9 % (11.5-14.5) H Platelet Count 286 x10^3/uL (140-400) Neutrophils (%) (Auto) 36 % (31-73) Lymphocytes (%) (Auto) 53 % (24-48) H Monocytes (%) (Auto) 6 % (0-9) Eosinophils (%) (Auto) 4 % (0-3) H Basophils (%) (Auto) 1 % (0-3) Neutrophils # (Auto) 2.0 x10^3/uL (1.8-7.7) Lymphocytes # (Auto) 3.0 x10^3/uL (1.0-4.8) Monocytes # (Auto) 0.3 x10^3/uL (0.0-1.1) Eosinophils # (Auto) 0.2 x10^3/uL (0.0-0.7) Basophils # (Auto) 0.1 x10^3/uL (0.0-0.2) Prothrombin Time 28.9 SEC (11.7-14.0) H Prothrombin Time INR 2.7 (0.8-1.1) H Sodium Level 140 mmol/L (136-145) Potassium Level 3.8 mmol/L (3.5-5.1) Chloride Level 104 mmol/L (98-107) Carbon Dioxide Level 30 mmol/L (21-32) Anion Gap 6 (6-14) Blood Urea Nitrogen 12 mg/dL (7-20) Creatinine 1.2 mg/dL (0.6-1.0) H Estimated GFR (Cockcroft-Gault) 54.4 Glucose Level 95 mg/dL (70-99) Calcium Level 8.8 mg/dL (8.5-10.1) Laboratory Tests 11/06/19 22:53 Laboratory Tests 11/07/19 00:15 (DAYDAY ALCALA MD) Lab Values Laboratory Tests Test 11/06/19 22:53 11/07/19 00:15 White Blood Count 5.6 x10^3/uL (4.0-11.0) Red Blood Count 4.01 x10^6/uL (3.50-5.40) Hemoglobin 11.1 g/dL (12.0-15.5) L Hematocrit 33.9 % (36.0-47.0) L Mean Corpuscular Volume 85 fL (79-100) Mean Corpuscular Hemoglobin 28 pg (25-35) Mean Corpuscular Hemoglobin Concent 33 g/dL (31-37) Red Cell Distribution Width 15.9 % (11.5-14.5) H Platelet Count 286 x10^3/uL (140-400) Neutrophils (%) (Auto) 36 % (31-73) Lymphocytes (%) (Auto) 53 % (24-48) H Monocytes (%) (Auto) 6 % (0-9) Eosinophils (%) (Auto) 4 % (0-3) H Basophils (%) (Auto) 1 % (0-3) Neutrophils # (Auto) 2.0 x10^3/uL (1.8-7.7) Lymphocytes # (Auto) 3.0 x10^3/uL (1.0-4.8) Monocytes # (Auto) 0.3 x10^3/uL (0.0-1.1) Eosinophils # (Auto) 0.2 x10^3/uL (0.0-0.7) Basophils # (Auto) 0.1 x10^3/uL (0.0-0.2) Prothrombin Time 28.9 SEC (11.7-14.0) H Prothrombin Time INR 2.7 (0.8-1.1) H Sodium Level 140 mmol/L (136-145) Potassium Level 3.8 mmol/L (3.5-5.1) Chloride Level 104 mmol/L (98-107) Carbon Dioxide Level 30 mmol/L (21-32) Anion Gap 6 (6-14) Blood Urea Nitrogen 12 mg/dL (7-20) Creatinine 1.2 mg/dL (0.6-1.0) H Estimated GFR (Cockcroft-Gault) 54.4 Glucose Level 95 mg/dL (70-99) Calcium Level 8.8 mg/dL (8.5-10.1) Laboratory Tests 11/06/19 22:53 Laboratory Tests 11/07/19 00:15 (JAX ARMSTRONG APRN) EKG EKG Sinus rhythm and no STEMI[] Interpretation Time: [address] Alcala (JAX ARMSTRONG APRN) Radiology/Procedures Radiology/Procedures [] (JAX ARMSTRONG APRN) Impressions: [facility] [address] [place], [place] [id number] IMAGING REPORT Signed PATIENT: BRI GOMES ACCOUNT: [id number] : 1955 LOCATION: ER AGE: 64 SEX: F EXAM STATUS: REG ER ORD. PHYSICIAN: JAX ARMSTRONG APRN REASON: PAIN, BRUISING PROCEDURE: VENOUS UPPER EXTREMITY RIGHT Right upper Extremity Venous Doppler Ultrasound History: Pain and bruising Comparison: None Procedure: Color flow, duplex, spectral analysis and 2D images are obtained with and without compression in the area of the deep and superficial venous structures of the upper , specifically the axillary, brachials, radial and ulnar deep veins and the superficial basilic and cephalic veins. Color Doppler and venous waveform analysis was also applied to the left jugular and subclavian vein. Findings: There is normal duplex flow, color flow and compressibility of all visualized vein segments. No evidence of deep venous thrombus is present. There is a 1.7 x 2.4 x 1.1 cm hematoma. Impression: Normal venous Doppler ultrasound with no evidence of DVT. Electronically signed by: Katharina Malone III, MD (11/06/2019 10:46 PM) [facility] DICTATED and SIGNED BY: KATHARINA MALONE III, MD DATE: 11/06/19 2246 (JAX ARMSTRONG APRN) Course & Med Decision Making Course & Med Decision Making Skin pink warm and dry. Radial pulse strong and present. 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 Can wiggle all fingers. Denies any numbness or tingling or coolness of the extremity. Patient has a large hematoma with a small pea-sized not addressed tender to palpation to the right bicep. Cap Refill less than 3 seconds. Patient denies chest pain, shortness of air, nausea, vomiting, fever, injury, headache, dizziness, visual changes, numbness or tingling. Patient is wanting to leave before all blood work is back. US shows: Normal venous Doppler ultrasound with no evidence of DVT. (JAX ARMSTRONG APRN) Dragon Disclaimer Dragon Disclaimer This electronic medical record was generated, in whole or in part, using a voice recognition dictation system. (JAX ARMSTRONG APRN) Departure Departure Impression: Primary Impression: Hematoma Disposition: HOME, SELF-CARE Condition: STABLE Referrals: SHANTE BERNAL MD (PCP) Patient Instructions: Hematoma Additional Instructions: Follow up with primary care provider. Continue taking medications as prescribed. JAX ARMSTRNOG APRN Nov 06, 2019 23:04 DAYDAY ALCALA MD Nov 07, 2019 07:35
[2019-11-06 23:05] LABS: BASO # 0.1 x10^3/uL (0.0-0.2); BASO % 1 % (0-3); EOS # 0.2 x10^3/uL (0.0-0.7); EOS % 4 % (0-3); HEMATOCRIT 33.9 % (36.0-47.0); HEMOGLOBIN 11.1 g/dL (12.0-15.5); LYMPH % 53 % (24-48); MEAN CORPUSCULAR HEMOGLOBIN 28 pg (25-35); MEAN CORPUSCULAR HGB CONC 33 g/dL (31-37); MEAN CORPUSCULAR VOLUME 85 fL (79-100); MONO # 0.3 x10^3/uL (0.0-1.1); MONO % 6 % (0-9); NEUT % 36 % (31-73); PLATELET COUNT 286 x10^3/uL (140-400); RED BLOOD COUNT 4.01 x10^6/uL (3.50-5.40); RED CELL DISTRIBUTION WIDTH 15.9 % (11.5-14.5); WHITE BLOOD COUNT 5.6 x10^3/uL (4.0-11.0)
[2019-11-06 23:13] LABS: PROTHROMBIN TIME PATIENT 28.9 SEC (11.7-14.0)
[2019-11-07 00:18] VITALS: BP 191/86
[2019-11-07 00:43] LABS: CALCIUM 8.8 mg/dL (8.5-10.1); CREATININE 1.2 mg/dL (0.6-1.0); GFR 54.4; POTASSIUM 3.8 mmol/L (3.5-5.1)
--- NOTE | 2019-11-07 06:14 | EKG ---
[facility] [address] [place] [address] Test Date: 2019-11-06 Test Time: 21:44:25 Pat Name: BRI GOMES Department: Room: Gender: F [employer] Counsel: : 1955 Requested By: JAX ARMSTRONG Order Number: [id number] Reading MD: Measurements Intervals [place] Rate: 61 P: 28 DE: 258 QRS: -35 QRSD: 142 T: 112 QT: 500 QTc: 505 Interpretive Statements SINUS RHYTHM PROLONGED DE INTERVAL ABNORMAL LEFT AXIS DEVIATION NON SPECIFIC INTRAVENTRICULAR BLOCK QRS(T) CONTOUR ABNORMALITY CONSISTENT WITH SEPTAL INFARCT PROBABLY OLD ABNORMAL ECG RI6.01 No previous ECG available for comparison
== END 2019-11-07 00:32 | disposition home or self-care (01) ==
LOC: ER 18:17
DX: S40.021A Contusion of right upper arm, initial encounter (principal); J45.909 Unspecified asthma, uncomplicated; I11.0 Hypertensive heart disease with heart failure; I50.9 Heart failure, unspecified; E03.9 Hypothyroidism, unspecified; E11.9 Type 2 diabetes mellitus without complications; F20.9 Schizophrenia, unspecified; Z86.711 Personal history of pulmonary embolism; Z95.0 Presence of cardiac pacemaker; Z79.01 Long term (current) use of anticoagulants; X58.XXXA Exposure to other specified factors, initial encounter; Y93.89 Activity, other specified; Y92.89 Other specified places as the place of occurrence of the external cause; Y99.8 Other external cause status
CPT/HCPCS: 36415; 80048; 85025; 85610; 93005; 93971; 99285-25

== ENCOUNTER → 2019-12-15 | Outpatient (CLI) | payer MEDICARE ==
--- NOTE | 2019-12-15 13:28 | RAD ---
DATE: December 15, 2019 EXAM: DIGITAL DIAGNOSTIC RT, BREAST RIGHT SONOGRAPHY HISTORY: Nodule of the 1:00 position of the right breast 7 cm from the nipple. Patient is scheduled for ultrasound-guided biopsy today. COMPARISON: October 09, 2019 and October 23, 2019 studies. This study was interpreted with the benefit of Computerized Aided Detection (CAD). FINDINGS: The previously seen sonographic nodule is not evident today and therefore no ultrasound guided biopsy could be performed. Repeat diagnostic mammography was performed today after the sonogram and the previously seen nodule has resolved. Therefore, this is consistent with an area of inflammation/hematoma or fat necrosis which has resolved. This is a benign finding. IMPRESSION: Resolution of previously seen nodule of the right breast consistent with a benign finding. Recommend routine screening mammography in one year. This result was discussed with the patient after completion of the studies on December 15, 2019. BI-RADS CATEGORY: 2 BENIGN FINDING RECOMMENDED FOLLOW-UP: 12M 12 MONTH FOLLOW-UP PQRS compliance statement: Patient information was entered into a reminder system with a target due date October 10, 2020 for the next mammogram. Mammography is a sensitive method for finding small breast cancers, but it does not detect them all and is not a substitute for careful clinical examination. A negative mammogram does not negate a clinically suspicious finding and should not result in delay in biopsying a clinically suspicious abnormality. "Our facility is accredited by the [employer] Mammography Program."
== END | disposition home or self-care (01) ==
LOC: US 12:05
PROVIDERS: ATTEND Internal Medicine
DX: R92.8 Other abnormal and inconclusive findings on diagnostic imaging of breast (principal)
CPT/HCPCS: 76641; 77065

== ENCOUNTER 2020-06-04 20:26 | Emergency (ER) | payer MEDICARE ==
[~2020-06-04] VITALS: Ht 167.6 cm; Wt 150.0 kg
--- NOTE | 2020-06-04 21:09 | PHYS DOC ---
Past Medical History Past Medical History: Anxiety, Asthma, Bipolar, CHF, Depression, Diabetes-Type II, Hypertension, Hypothyroid, Seizure, Schizophrenia, Other Additional Past Medical Histor: PE Past Surgical History: Cholecystectomy, Pacemaker, Other Additional Past Surgical Histo: bladder lift, partial hysterectomy, hernia repair Smoking Status: Never Smoker Alcohol Use: None Drug Use: None General Adult EDM: Chief Complaint: LOWER EXTREMITY SWELLING HPI: HPI: 65-year-old female presents to the emergency department complaints of left lower extremity swelling, pain, left foot swelling. Patient has a history of congestive heart failure, hypertension, seizure, hypothyroidism. Patient states that started today. She has a history of congestive heart failure. Pulses are dopplerable in the emergency department, patient's lower extremity is not cold on exam, there is no concern for cellulitis on exam. Nothing makes her symptoms worse, nothing makes her symptoms better. She denies any chest pain, shortness of breath, nausea, vomiting, dental pain, headache or visual changes. Review of Systems: Review of Systems: Constitutional: Denies fever or chills. [] Eyes: Denies change in visual acuity. [] HENT: Denies nasal congestion or sore throat. [] Respiratory: Denies cough or shortness of breath. [] Cardiovascular: Denies chest pain/+ edema GI: Denies abdominal pain, nausea, vomiting, bloody stools or diarrhea. [] Musculoskeletal: edema to bilateral lower extremity, left greater than right Integument: Denies rash. [] Neurologic: Denies headache, focal weakness or sensory changes. [] Endocrine: Denies polyuria or polydipsia. [] Lymphatic: Denies swollen glands. [] Psychiatric: Denies depression or anxiety. [] Heart Score: Risk Factors: Risk Factors: DM, Current or recent (<one month) smoker, HTN, HLP, family history of CAD, obesity. Risk Scores: Score 0 - 3: 2.5% MACE over next 6 weeks - Discharge Home Score 4 - 6: 20.3% MACE over next 6 weeks - Admit for Clinical Observation Score 7 - 10: 72.7% MACE over next 6 weeks - Early Invasive Strategies Allergies: Allergies: Allergies Coded Allergies Type Severity Reaction Last Updated Verified No Known Medication Allergies Allergy Unknown 11/26/14 Yes Physical Exam: PE: Constitutional: Well developed, well nourished, no acute distress, non-toxic appearance. [] HENT: Normocephalic, atraumatic, bilateral external ears normal, oropharynx moist, no oral exudates, nose normal. [] Eyes: PERRLA, EOMI, conjunctiva normal, no discharge. [] Cardiovascular:Heart rate regular rhythm, no murmur [] Lungs & Thorax: Bilateral breath sounds clear to auscultation [] Abdomen: Bowel sounds normal, soft, no tenderness, no masses, no pulsatile masses. [] Skin: Warm, dry, no erythema, no rash. [] Back: No tenderness, no CVA tenderness. [] Extremities: No tenderness, no cyanosis, no clubbing, ROM intact, + edema left greater than right [] Neurologic: Alert and oriented X 3, no focal deficits noted. [] Psychologic: Affect normal, judgement normal, mood normal. [] EKG: EKG: [] Radiology/Procedures: Radiology/Procedures: [] Course & Med Decision Making: Course & Med Decision Making Pertinent Labs and Imaging studies reviewed. (See chart for details) []65-year-old female presents to the emergency department complaints of left lower extremity swelling, pain, left foot swelling. Patient has a history of congestive heart failure, hypertension, seizure, hypothyroidism. Patient states that started today. She has a history of congestive heart failure. Pulses are dopplerable in the emergency department, patient's lower extremity is not cold on exam, there is no concern for cellulitis on exam. Nothing makes her symptoms worse, nothing makes her symptoms better. She denies any chest pain, shortness of breath, nausea, vomiting, dental pain, headache or visual changes. Mariaa Disclaimer: Mariaa Disclaimer: This electronic medical record was generated, in whole or in part, using a voice recognition dictation system. Departure Departure Impression: Primary Impression: Edema of left lower extremity Disposition: 01 HOME, SELF-CARE Condition: STABLE Referrals: SHANTE BERNAL MD (PCP) Patient Instructions: Peripheral Edema Justicifation of Admission Dx: Justifications for Admission: Justification of Admission Dx: N/A DAYDAY ALCALA MD Jun 04, 2020 21:09
--- NOTE | 2020-06-04 21:40 | RAD ---
EXAM: 3 views left foot DATE: 06/04/2020 9:03 PM INDICATION: Reason: Diabetic pt with foot edema, no known injury / Spl. Instructions: / History: COMPARISON: No Prior FINDINGS: Marked forefoot and midfoot soft tissue swelling. No acute fracture or dislocation. No tarsometatarsal offset. Midfoot degenerative changes are seen. Calcaneal enthesopathy. No definite erosive/destructive change or periostitis to suggest acute osteomyelitis. IMPRESSION: 1. Diffuse forefoot-mid foot soft tissue swelling. No radiographic evidence for osteomyelitis. 2. No evidence of acute fracture or dislocation. Electronically signed by: Devaughn Mccauley MD (06/04/2020 9:37 PM) JIM
[2020-06-04 22:43] LABS: BASO # 0.1 x10^3/uL (0.0-0.2); BASO % 2 % (0-3); EOS # 0.3 x10^3/uL (0.0-0.7); EOS % 4 % (0-3); HEMATOCRIT 29.8 % (36.0-47.0); HEMOGLOBIN 9.8 g/dL (12.0-15.5); LYMPH # 2.5 x10^3/uL (1.0-4.8); LYMPH % 39 % (24-48); MEAN CORPUSCULAR HEMOGLOBIN 28 pg (25-35); MEAN CORPUSCULAR HGB CONC 33 g/dL (31-37); MEAN CORPUSCULAR VOLUME 84 fL (79-100); MONO # 0.5 x10^3/uL (0.0-1.1); MONO % 8 % (0-9); NEUT % 47 % (31-73); PLATELET COUNT 303 x10^3/uL (140-400); RED BLOOD COUNT 3.53 x10^6/uL (3.50-5.40); RED CELL DISTRIBUTION WIDTH 18.6 % (11.5-14.5); WHITE BLOOD COUNT 6.4 x10^3/uL (4.0-11.0)
[2020-06-04 22:50] LABS: CALCIUM 8.4 mg/dL (8.5-10.1); CREATININE 1.3 mg/dL (0.6-1.0); GFR 49.4; POTASSIUM 4.1 mmol/L (3.5-5.1)
[2020-06-04 22:56] LABS: ALBUMIN/GLOBULIN RATIO 0.8 (1.0-1.7); TOTAL BILIRUBIN 0.1 mg/dL (0.2-1.0)
[2020-06-04] MEDS ORDERED: ACETAMINOPHEN 500 MG TABLET PO ONE (23:00)
[2020-06-04 23:28] VITALS: BP 189/81
== END 2020-06-05 00:33 | disposition home or self-care (01) ==
LOC: ER 20:26
DX: R60.0 Localized edema (principal); M79.605 Pain in left leg; F31.9 Bipolar disorder, unspecified; I11.0 Hypertensive heart disease with heart failure; I50.9 Heart failure, unspecified; J45.909 Unspecified asthma, uncomplicated; E03.9 Hypothyroidism, unspecified; F20.9 Schizophrenia, unspecified; Z95.0 Presence of cardiac pacemaker
CPT/HCPCS: 36415; 73630; 80053; 85025; 85379; 99284

== ENCOUNTER → 2020-10-18 | Outpatient (CLI) | payer MEDICARE ==
--- NOTE | 2020-10-19 15:30 | RAD ---
DATE: 10/18/2020 2:47 PM EXAM: DIGITAL SCREEN BILAT W/CAD HISTORY: Screening COMPARISON: 10/09/2019 Bilateral CC and MLO views of the breasts were performed. Bilateral breast tomosynthesis was performed in CC and MLO projections. This study was interpreted with the benefit of Computerized Aided Detection (CAD). FINDINGS: Breast Density: FATTY The Breast Parenchyma is primarily fatty replaced. Breast parenchyma level density A. Right breast MRI compatible pacemaker redemonstrated. No suspicious masses, microcalcifications or architectural distortion is present to suggest malignancy in either breast. The visualized axillae are unremarkable. IMPRESSION: No mammographic evidence of malignancy. BI-RADS CATEGORY: 1 NEGATIVE RECOMMENDED FOLLOW-UP: 12M 12 MONTH FOLLOW-UP Annual screening mammography is recommended, unless clinically indicated sooner based on symptoms or change in physical exam. PQRS compliance statement: Patient information was entered into a reminder system with a target due date for the next mammogram. Mammography is a sensitive method for finding small breast cancers, but it does not detect them all and is not a substitute for careful clinical examination. A negative mammogram does not negate a clinically suspicious finding and should not result in delay in biopsying a clinically suspicious abnormality. "Our facility is accredited by the [employer] Mammography Program."
== END ==
LOC: MAMMO 14:40
PROVIDERS: ATTEND Internal Medicine
DX: Z12.31 Encounter for screening mammogram for malignant neoplasm of breast (principal)
CPT/HCPCS: 77067

== ENCOUNTER → 2020-12-10 | Outpatient (CLI) | payer MEDICARE ==
[~2020-12-10] MED LIST changes: +ACET500T33 PO; +BISA-42 PO; +BUDE10.2 IH; +CALC-178 PO; +CEFP200T PO; +DILT120C99 PO; +HYDR-2868 PO; -LISI-338 PO; +LISI-517 PO; +LISI10TA16 PO; -LISI10TA2 PO; +LORA0.5T96 PO; +MOME13HF2 IH; -OMEP40CA45 PO; +OMEP40CA7 PO; +POLY17PO29 PO; +WARF6TAB47 PO; +ZIPR80CA3 PO
[2020-12-10 12:16] LABS: BASO # 0.1 x10^3/uL (0.0-0.2); BASO % 1 % (0-3); EOS # 0.1 x10^3/uL (0.0-0.7); EOS % 3 % (0-3); HEMATOCRIT 36.3 % (36.0-47.0); HEMOGLOBIN 11.8 g/dL (12.0-15.5); LYMPH # 2.1 x10^3/uL (1.0-4.8); LYMPH % 50 % (24-48); MEAN CORPUSCULAR HEMOGLOBIN 27 pg (25-35); MEAN CORPUSCULAR HGB CONC 33 g/dL (31-37); MEAN CORPUSCULAR VOLUME 84 fL (79-100); MONO # 0.4 x10^3/uL (0.0-1.1); MONO % 9 % (0-9); NEUT # 1.6 x10^3/uL (1.8-7.7); NEUT % 37 % (31-73); PLATELET COUNT 277 x10^3/uL (140-400); RED BLOOD COUNT 4.32 x10^6/uL (3.50-5.40); RED CELL DISTRIBUTION WIDTH 17.6 % (11.5-14.5); WHITE BLOOD COUNT 4.2 x10^3/uL (4.0-11.0)
[2020-12-10 12:20] LABS: ALBUMIN 3.3 g/dL (3.4-5.0); ALBUMIN/GLOBULIN RATIO 0.8 (1.0-1.7); CALCIUM 9.1 mg/dL (8.5-10.1); CREATININE 1.4 mg/dL (0.6-1.0); GFR 45.4; TOTAL BILIRUBIN 0.3 mg/dL (0.2-1.0); TOTAL PROTEIN 7.3 g/dL (6.4-8.2)
--- NOTE | 2020-12-10 17:36 | RAD ---
EXAM: XR CHEST 2V INDICATION: Reason: DYSPNEA / Spl. Instructions: / History: . TECHNIQUE: PA and lateral views COMPARISON: Chest x-ray of 07/02/2018 FINDINGS: Right chest dual-chamber pacemaker is redemonstrated. The heart size is normal. The great vessels appear unremarkable. There is no hilar or mediastinal mass. The lungs show mild pulmonary vascular congestion but otherwise are clear. There is no pleural effusion or pneumothorax. There are no significant osseous abnormalities. IMPRESSION: Mild pulmonary vascular congestion. No focal infiltrates. Electronically signed by: Olivia Marcus MD (12/10/2020 5:34 PM) [id number]
--- NOTE | 2020-12-11 16:24 | CARD ---
MR#: [id number] Date of Study: 12/10/2020 Ordering Physician: SAIRA GRAF, Referring Physician: SAIRA GRAF, Tech: Afua Quezadarajeshtroy, [facility] APPROVED REPORT EXAM: Two-dimensional and M-mode echocardiogram with Doppler and color Doppler. Other Information Quality : AverageHR: 63bpm Technically limited study due to Obesity INDICATION Dyspnea Surgery/Intervention Pacemaker: Date: 2015 RISK FACTORS Hypertension 2D DIMENSIONS RVDd3.4 (2.9-3.5cm)Left Atrium(2D)3.7 (1.6-4.0cm) IVSd1.5 (0.7-1.1cm)Aortic Root(2D)3.3 (2.0-3.7cm) LVDd4.9 (3.9-5.9cm)LVOT Diameter2.3 (1.8-2.4cm) PWd1.3 (0.7-1.1cm)LVDs2.7 (2.5-4.0cm) FS (%) 45.0 %SV84.9 ml LVEF(%)76.1 (>50%) Aortic Valve AoV Peak [place].155.9cm/sAoV VTI28.5cm AO Peak GR.9.7mmHgLVOT Peak [place]cad[place].117.8cm/s LVOT VTI 25.05cmAO Mean GR.5mmHg MARIEL (VMAX)2.08dw0SFY (VTI)3.56cm2 AI P 1/2 Hjoy231yv Mitral Valve MV E Oymhcsdn85.0cm/sMV DECEL [id number] MV A Ambrvbdc15.4cm/sMV E Mean Gr.1mmHg MV GLV47lxD/A Ratio0.9 MVA (PHT)2.24cm2 TDI E/Lateral E'8.8E/Medial E'12.1 Pulmonary Valve PV Peak Ndlbbtup809.2cm/sPV Peak Grad.4mmHg Tricuspid Valve TR P. Ducvqmuw762ls/sRAP DKRPJNYU7xeJj TR Peak Gr.00bqScUBKD42lfZp Pulmonary Vein S1 Mumpgsfv86.0cm/sD2 Xlyqshow20.2cm/s PVa gzdyzkep350ixik LEFT VENTRICLE The left ventricle is normal size. There is mild to moderate concentric left ventricular hypertrophy. The left ventricular systolic function is normal and the ejection fraction is within normal range. T he Ejection Fraction is 55-60%. There is normal LV segmental wall motion. Transmitral Doppler flow pa ttern is Grade I-abnormal relaxation pattern. RIGHT VENTRICLE The right ventricle is normal size. There is normal right ventricular wall thickness. The right ventr icular systolic function is normal. There is a pacemaker lead in the right ventricle. ATRIA The left atrium size is normal. The right atrium size is normal. The interatrial septum is intact wit h no evidence for an atrial septal defect or patent foramen ovale as noted on 2-D or Doppler imaging. AORTIC VALVE The aortic valve is normal in structure and function. Doppler and Color Flow revealed trace aortic re gurgitation. There is no significant aortic valvular stenosis. Calculated aortic valve area is 3.13 c m2 with maximum pressure gradient of 11 mmHg and mean pressure gradient of 6 mmHg. MITRAL VALVE The mitral valve is normal in structure and function. There is no evidence of mitral valve prolapse. There is no mitral valve stenosis. Doppler and Color-flow revealed trace mitral regurgitation. TRICUSPID VALVE The tricuspid valve is normal in structure and function. Doppler and Color Flow revealed trace tricus pid regurgitation with an estimated PAP of 26 mmHg. There is no tricuspid valve stenosis. PULMONIC VALVE The pulmonic valve is not well visualized. Doppler and Color Flow revealed trace pulmonic valvular re gurgitation. There is no pulmonic valvular stenosis. GREAT VESSELS The aortic root is normal in size. The IVC is dilated. PERICARDIAL EFFUSION There is no evidence of significant pericardial effusion. Critical Notification Critical Value: No <Conclusion> The left ventricular systolic function is normal and the ejection fraction is within normal range. Th e Ejection Fraction is 55-60%. There is normal LV segmental wall motion. There is a pacemaker lead in the right ventricle. Signed by : Saira Graf, Electronically Approved : 12/11/2020 16:24:24
== END ==
LOC: ECHO 11:29
PROVIDERS: ATTEND Internal Medicine Cardiovascular Disease
DX: R06.00 Dyspnea, unspecified (principal); R09.81 Nasal congestion; I51.7 Cardiomegaly; Z95.0 Presence of cardiac pacemaker
CPT/HCPCS: 36415; 71046; 80053; 83880; 85025; 93306

== ENCOUNTER → 2021-12-01 | Outpatient (CLI) | payer MEDICARE ==
[2021-03-31 11:00] VITALS: BP 178/82
[~2021-12-01] MED LIST changes: -CITA40TA5 PO; +CITA40TA6 PO; -LISI-517 PO; +LISI5TAB15 PO; +OLAN15TA15 PO; -OLAN15TA9 PO; +OLAN5TAB67 PO; -OLAN5TAB9 PO
--- NOTE | 2021-12-01 13:47 | KCIC ---
EXAM: DUAL ENERGY X-RAY ABSORPTIOMETRY (DEXA). HISTORY: Postmenopausal screening. FINDINGS: The lowest measured T-score is 0.6 in the left hip, based on a bone mineral density of 1.01 0 g/cm^2. Refer to the worksheets for full detail. There has been a 13.1 percent increase in density of the left hip and 5.6 percent increase in density of the lumbar spine compared to a study performed 10/03/2018. IMPRESSION: 1. Normal. Bone mineral density yields a T-score of -1.0 or greater. Fracture risk is low. 2. FRAX report: Not calculated. METHODOLOGY: Dual energy x-ray absorptiometry was performed to measure bone mineral density. The foll owing analysis is based on the 2019 Official Positions of the International Society for Clinical Dens itometry: Measurements of the hips and the average of L1-L4 are preferred. When the spine and/or hip cannot be feasibly measured or interpreted, or in the setting of hyperparathyroidism, distal radial bone minera l density may be measured. The lumbar spine T-score is based on the average bone mineral density of L1-L4. In the setting of art ifact or anatomic abnormality, some lumbar levels may be excluded, and the remaining levels used for calculation. A single lumbar level is not used for diagnosis, and if only a single level is available for assessment, another anatomic site will be used to assign a diagnosis. The hip T-score is based on the bone mineral density measurement of the femoral neck or total proxima l femur of either side, whichever is lowest. Bilateral mean values are not used for diagnosis. The forearm T-score is derived from 33% of the distal radius of the nondominant forearm. Electronically signed by: Ese Marques MD (12/01/2021 1:45 PM) [id number]
== END ==
LOC: KCIC MAMMO 12:28
PROVIDERS: ATTEND Internal Medicine
DX: E28.39 Other primary ovarian failure (principal); Z78.0 Asymptomatic menopausal state
CPT/HCPCS: 77080

== ENCOUNTER → 2022-02-13 | Outpatient (CLI) | payer MEDICARE ==
[2021-03-31 11:00] VITALS: BP 178/82
--- NOTE | 2022-02-13 12:44 | KCIC ---
Bilateral digital screening mammograms: Reason for examination: Routine screening. Comparison is made to previous studies dated back to 10/03/2018. CAD was not available for interpretation of this exam. Pacemaker is present on the right. The skin and nipples show no abnormalities. No abnormal axillary l ymph nodes are seen. The breast parenchyma shows scattered fibroglandular density. (Breast density: C ategory B.) There are no dominant masses, suspicious calcifications or architectural distortions. Alex e benign calcifications are present. Impression: No evidence of malignancy. Recommend routine screening. BI-RADS category 2: Benign "Our facility is accredited by the [employer] Mammography Program." This patient's information has been entered into a reminder system for the patient to be notified wit h the results of her examination and a target date for the next mammogram. Electronically signed by: Winter Engel MD (02/13/2022 12:41 PM) [id number]
== END ==
LOC: KCIC MAMMO 09:39
PROVIDERS: ATTEND Internal Medicine
DX: Z12.31 Encounter for screening mammogram for malignant neoplasm of breast (principal)
CPT/HCPCS: 77067